=== PATIENT | male | born 1945 | race Caucasian/White ===

== ENCOUNTER 2016-10-22 00:10 | Emergency (ER) | payer MEDICAID ==
[~2016-10-22] VITALS: Ht 152.4 cm; Wt 65.8 kg
[~2016-10-22 00:10] MED LIST: ACET-2605; AMLO10TA2; ASPI-605; ATOR40TA; CALC-746; GLIM1TAB2 PO; LISI10TA5 PO; METF500T4; OMEG1CAP PO
--- NOTE | 2016-10-22 00:20 | NUR ---
LISANDRO LE EDEMA X2 MONTHS; WORSE THE LAST 2 WEEKS; TODAY CANT WALK. PT GOWNED, PLACED ON CORPORATE RISK ANALYST, SKIN WARM AND DRY, RR EVEN AND UNLABORED. AWAITING ORDERS FROM PROVIDER, WILL CONITNUE TO MONITOR
[2016-10-22 01:00] LABS: BASOPHILS % (AUTO) 0.8 % (0.0-2.0); EOSINOPHILS # (AUTO) 0.3 /CMM (0.0-0.7); EOSINOPHILS % (AUTO) 5.7 % (0.0-6.0); HEMATOCRIT 35 % (39-51); HEMOGLOBIN 11.2 g/dL (13.5-17.5); LYMPHOCYTES # (AUTO) 1.9 /CMM (0.8-4.8); LYMPHOCYTES % (AUTO) 38.8 % (20.0-44.0); MEAN CORPUSCULAR HEMOGLOBIN 25 PG (26.0-33.0); MEAN CORPUSCULAR HGB CONC 32 g/dl (31.0-36.0); MEAN CORPUSCULAR VOLUME 78 fL (80-96); MONOCYTES # (AUTO) 0.5 /CMM (0.1-1.30); MONOCYTES % (AUTO) 10.3 % (2.0-12.0); NEUTROPHILS # (AUTO) 2.2 /CMM (1.8-8.9); NEUTROPHILS % (AUTO) 44.4 % (43.0-81.0); PLATELET COUNT (AUTO) 222 /CMM (150-450); RDW COEFFICIENT OF VARIATION 14.9 (11.5-15.0); RED BLOOD CELL COUNT(AUTO) 4.48 MIL/uL (4.5-6.0)
[2016-10-22 01:12] LABS: CALCIUM, SERUM 8.4 mg/dL (8.5-10.1); POTASSIUM 4.1 mmol/L (3.5-5.1)
[2016-10-22 01:57] VITALS: BP 163/70
--- NOTE | 2016-10-22 01:58 | NUR ---
Patient discharged to home in stable condition. Written and verbal after care instructions given. Patient verbalizes understanding of instruction. PT ambulatory with a steady gait VITAL SIGNS WITHIN NORMAL LIMITS.
== END 2016-10-22 01:59 | disposition home or self-care (01) ==
LOC: ER 00:10
DX: M79.605 Pain in left leg (principal); M79.604 Pain in right leg; G89.29 Other chronic pain; G62.9 Polyneuropathy, unspecified; I10 Essential (primary) hypertension; E11.9 Type 2 diabetes mellitus without complications; Z86.73 Personal history of transient ischemic attack (TIA), and cerebral infarction without residual deficits; I25.10 Atherosclerotic heart disease of native coronary artery without angina pectoris; Z79.82 Long term (current) use of aspirin; Z79.84 Long term (current) use of oral hypoglycemic drugs; Z79.899 Other long term (current) drug therapy
CPT/HCPCS: 36415; 80048; 85025; 99284; A4606; Z7610

== ENCOUNTER 2017-01-04 09:58 | Inpatient (IN) | payer MEDICAID ==
[2017-01-04] VITALS (8 sets, daily range): BP systolic 121–174; BP diastolic 50–80
[~2017-01-04] VITALS: Ht 157.5 cm; Wt 73.0 kg
[~2017-01-04 09:58] MED LIST changes: -AMLO10TA2; +AMLO10TA2 PO; -ASPI-605; +ASPI-605 PO; -ATOR40TA; +ATOR40TA PO; -CALC-746; +CALC-746 PO; -METF500T4; +METF500T4 PO
--- NOTE | 2017-01-04 10:06 | NUR ---
ALVARO FROM HOME DT CHEST PAIN, SHARP, NON RADIAITNG SINCE LAST NIGHT. PATIENT WAS GIVEN ASA 162MG AND NITRO IN FIELD. PATIENT DENIES SOB,. SKIN IS WARM TO TOUCH AND NON DIOAPHORETIC. AFEBRILE. VSS. GOWNED PT AND PLACED ON TELE MONITOR
--- NOTE | 2017-01-04 10:11 | NUR ---
EKG DONE AT BS.
--- NOTE | 2017-01-04 10:17 | NUR ---
CHOPPER FEEDER AT FOR BLOOD DRAW.
[2017-01-04 10:22] LABS: BASOPHILS # (AUTO) 0.1 /CMM (0.0-0.2); BASOPHILS % (AUTO) 0.8 % (0.0-2.0); EOSINOPHILS # (AUTO) 0.1 /CMM (0.0-0.7); HEMATOCRIT 24 % (39-51); HEMOGLOBIN 7.6 g/dL (13.5-17.5); LYMPHOCYTES # (AUTO) 1.3 /CMM (0.8-4.8); MEAN CORPUSCULAR HEMOGLOBIN 25 PG (26.0-33.0); MEAN CORPUSCULAR HGB CONC 32 g/dl (31.0-36.0); MEAN CORPUSCULAR VOLUME 79 fL (80-96); MONOCYTES # (AUTO) 0.6 /CMM (0.1-1.30); MONOCYTES % (AUTO) 7.3 % (2.0-12.0); NEUTROPHILS # (AUTO) 5.5 /CMM (1.8-8.9); NEUTROPHILS % (AUTO) 73.9 % (43.0-81.0); PLATELET COUNT (AUTO) 527 /CMM (150-450); RDW COEFFICIENT OF VARIATION 14.9 (11.5-15.0); RED BLOOD CELL COUNT(AUTO) 3.05 MIL/uL (4.5-6.0); WHITE BLOOD COUNT (AUTO) 7.6 K/uL (4.3-11.0)
[2017-01-04 10:33] LABS: CALCIUM, SERUM 8.2 mg/dL (8.5-10.1); CARBON DIOXIDE 30 mmol/L (21-32); CHLORIDE 105 mmol/L (98-107); GLUCOSE 119 mg/dL (74-106); POTASSIUM 3.6 mmol/L (3.5-5.1); SODIUM SERUM 141 mmol/L (136-145); UREA NITROGEN, BLOOD 16 mg/dL (7-18)
[2017-01-04 10:36] LABS: INR 1.12 (0.87-1.13); PROTHROMBIN TIME 11.7 SECS (9.5-12.7)
[2017-01-04 10:42] LABS: TROPONIN I 0.176 ng/mL (0.00-0.056)
[2017-01-04] MEDS ORDERED: ATEN25TA PO (10:49)
[2017-01-04] MEDS ORDERED: AMLO10TA2 PO (10:49)
--- NOTE | 2017-01-04 11:07 | NUR ---
RENETTA CHERY AT BS.
--- NOTE | 2017-01-04 11:14 | NUR ---
REPORT GIVEN TO KRISTOFER OWENS FOR TELE ROOM 306-1.
--- NOTE | 2017-01-04 11:45 | NUR ---
RN OPENING NOTES RECEIVED PATIENT FROM ER VIA GURNEY TO ROOM 320-1. PATIENT ADMITTED FOR CHEST PAIN. PATIENT IS IN STABLE CONDITION. FAMILY AT BED SIDE. PATIENT A/OX3. PATIENT PRIMARY LANGUAGE IS LATVIAN. FAMILY ABLE TO INTERPRET. LAC 20G S/L. RESPIRATIONS EVEN AND UNLABORED AT THIS TIME. NO ACUTE DISTRESS. DENIES SOB. PATIENT IS FC. ON TELE MONITOR. SINUS RHYTHM WITH OCCASIONAL PVC'S. PATIENT HAD LEFT KNEE REPLACEMENT 10 DAYS AGO (12/25). FAMILY STATES THAT PATIENT HAS BEEN HAVING THE URGE TO URINATE FREQUENTLY AND BURNING ACCOMPANIES URINATION. PATIENT HAS NO COMPLAINT OF CHEST PAIN AT THIS TIME. WILL COMMUNICATE PATIENT NEEDS WITH SON. BED LOCKED IN THE LOWEST POSITION WITH CALL LIGHT WITHIN REACH. SIDE RAILS UP X2. WILL CONTINUE TO MONITOR AND ASSESS PATIENT.
[2017-01-04] MEDS ORDERED: Z GUARD REMEDY 2 OZ OINT TP PRN (13:00)
[2017-01-04] MEDS ORDERED: MORPHINE SULFATE INJ 2 MG/ML DISP.SYRIN IV PRN (13:00)
[2017-01-04] MEDS: ENOXAPARIN SODIUM 40 MG/0.4 ML DISP.SYRIN SQ SCH ×3 (13:00→13:51)
[2017-01-04] MEDS ORDERED: ONDANSETRON HCL/PF 4 MG/2 ML VIAL IVP PRN (13:00)
[2017-01-04] MEDS ORDERED: ACETAMINOPHEN 325 MG TABLET PO PRN (13:00)
[2017-01-04] MEDS: IV NS 0.9% 1,000 ML IV PRN (13:37)
--- NOTE | 2017-01-04 14:00 | NUR ---
RN NOTES PRIOR TO 1300 ADMINISTRATION OF LOVENOX. FAMILY STATED THAT THEY GAVE PATIENT LOVENOX AT APPROXIMATELY 0030. CALLED PHARMACY TO DISCUSS ISSUE AND PHARMACIST EMILE STATED IT IS OKAY TO HOLD PER FAMILY DOSE OF LOVENOX AT 0030. PATIENT RECEIVING NS AT 75 ML/HR LAC. WILL CONTINUE TO MONITOR.
[2017-01-04] MEDS ORDERED: LORATADINE 10 MG TABLET PO PRN (18:00)
--- NOTE | 2017-01-04 19:30 | NUR ---
TRACK SURFACING MACHINE OPERATOR NOTE RECEIVED PATIENT FROM DAY SHIFT, PATIENT IS ALERT AND ORIENTEDX3, DENIES RESPIRATORY DISTRESS OR PAIN AT THIS TIME, IV ON LEFT AC IS PATENT AND INTACT, NS IS RUNNING. HOME MEDS NEED TO BE RECONCILED, DR ROSS MADE AWARE. WILL HANG 1 UNIT OF PRBC WELL. TELE MONITOR ST WITH PVC 109. SRX2, BED IN LOW POSITION, CALL LIGHT WITHIN REACH, WILL CONTINUE TO MONITOR PATIENT.
--- NOTE | 2017-01-04 19:30 | NUR ---
RN CLOSING NOTES PATIENT AMBULATING WITH WALKER AND ASSISTANCE. PATIENT A/OX3. PATIENT PRIMARY LANGUAGE IS GREENLANDIC. FAMILY ABLE TO INTERPRET. LAC 20G S/L. RESPIRATIONS EVEN AND UNLABORED AT THIS TIME. NO ACUTE DISTRESS. DENIES SOB. SINUS RHYTHM WITH OCCASIONAL PVC'S. PATIENT HAS NO COMPLAINT OF CHEST PAIN AT THIS TIME. ALL MEDS GIVEN APPROPRIATE. PATIENT HAS ONE UNIT OF BLOOD READY. CONSENT SIGNED AND PLACED IN CHART. WILL ENDORSE TO NIGHT RN. BED LOCKED IN THE LOWEST POSITION WITH CALL LIGHT WITHIN REACH. SIDE RAILS UP X2. REPORT GIVEN TO TANK TERMINAL GAUGER RN FOR CONTINUATION OF CARE.
--- NOTE | 2017-01-04 20:40 | NUR ---
CLIPPER OPERATOR NOTE 1 UNIT OF PRBC STARTED, VS WNL 121/62, PULSE 90 TEMP 98.4F. WILL CONTINUE TO MONITOR FOR S/S OF TRANSFUSION REACTIONS.
[2017-01-04] MEDS ORDERED: ZOLPIDEM TARTRATE 5 MG TABLET PO PRN (22:00)
--- NOTE | 2017-01-04 23:15 | NUR ---
BARREL ASSEMBLER NOTE 1 UNIT OF PRBC TRANSFUSION COMPLETED WITHOUT REACTIONS, VS WNL, RECORDED UNDER TRANSFUSIONS.
[2017-01-05] VITALS (7 sets, daily range): BP systolic 121–158; BP diastolic 51–90
[2017-01-05 00:12] LABS: APPEARANCE,URINE CLEAR (CLEAR); BILIRUBIN,URINE NEGATIVE (NEGATIVE); BLOOD, URINE NEGATIVE Ery/uL (NEGATIVE); COLOR,URINE YELLOW (YELLOW); KETONES,URINE NEGATIVE (NEGATIVE); LEUKOCYTE ESTERASE ,URINE NEGATIVE (NEGATIVE); NITRITE, URINE NEGATIVE (NEGATIVE); PROTEIN,URINE TRACE mg/dl (NEGATIVE); UGLUCOSE 1+ mg/dL (NEGATIVE); UROBILINOGEN,URINE 0.2 EU/dL (0.2)
[2017-01-05 00:30] LABS: BACTERIA,URINE None seen /HPF (None Seen); RBC,URINE 0-2 /HPF (0-2); SQUAMOUS EPITHELIAL CELL,UR Rare /HPF (None Seen); WBC,URINE NONE SEEN /HPF (0-3)
[2017-01-05 00:31] LABS: MUCUS,URINE Rare /LPF (None Seen)
--- NOTE | 2017-01-05 01:45 | NUR ---
SHEET ROCK FINISHER NOTE PATIENT'S SON REQUESTED TO GIVE AMBIEN SINCE PT IS HAVING A HARD TIME SLEEPING. AMBIEN 5MG PO GIVEN, WILL MONITOR EFFECTIVENESS.
[2017-01-05 06:37] LABS: BASOPHILS % (AUTO) 0.5 % (0.0-2.0); EOSINOPHILS # (AUTO) 0.1 /CMM (0.0-0.7); EOSINOPHILS % (AUTO) 1.6 % (0.0-6.0); HEMATOCRIT 28 % (39-51); HEMOGLOBIN 9.3 g/dL (13.5-17.5); LYMPHOCYTES # (AUTO) 1.6 /CMM (0.8-4.8); MEAN CORPUSCULAR HEMOGLOBIN 26 PG (26.0-33.0); MEAN CORPUSCULAR HGB CONC 33 g/dl (31.0-36.0); MEAN CORPUSCULAR VOLUME 80 fL (80-96); MONOCYTES # (AUTO) 0.8 /CMM (0.1-1.30); MONOCYTES % (AUTO) 9.5 % (2.0-12.0); NEUTROPHILS # (AUTO) 5.9 /CMM (1.8-8.9); NEUTROPHILS % (AUTO) 69.4 % (43.0-81.0); PLATELET COUNT (AUTO) 491 /CMM (150-450); RDW COEFFICIENT OF VARIATION 15.5 (11.5-15.0); RED BLOOD CELL COUNT(AUTO) 3.52 MIL/uL (4.5-6.0); WHITE BLOOD COUNT (AUTO) 8.6 K/uL (4.3-11.0)
[2017-01-05 07:01] LABS: ALANINE AMINOTRANSFERASE 30 U/L (12-78); ALBUMIN 2.4 g/dL (3.4-5.0); ALKALINE PHOSPHATASE 55 U/L (46-116); ASPARTATE AMINOTRANSFERASE 27 U/L (15-37); BILIRUBIN,TOTAL 0.7 mg/dL (0.2-1.0); CALCIUM, SERUM 8.4 mg/dL (8.5-10.1); CARBON DIOXIDE 31 mmol/L (21-32); CHLORIDE 104 mmol/L (98-107); CREATININE 0.8 mg/dL (0.6-1.3); GLUCOSE 104 mg/dL (74-106); MAGNESIUM 1.5 mg/dL (1.8-2.4); PHOSPHORUS 3.5 mg/dL (2.5-4.9); POTASSIUM 3.6 mmol/L (3.5-5.1); SODIUM SERUM 141 mmol/L (136-145); UREA NITROGEN, BLOOD 16 mg/dL (7-18)
[2017-01-05 07:11] LABS: CHOLESTEROL 102 mg/dL (<200); HDL CHOLESTEROL 29 mg/dL (40-60); LDL 60 mg/dL (0-99); THYROID STIMULATING HORMONE 0.274 uIU/mL (0.358-3.74); TRIGLYCERIDES 56 mg/dL (30-150)
--- NOTE | 2017-01-05 07:11 | NUR ---
CLIENT INSIGHTS CONSULTANT OPENING NOTES PATIENT RECEIVED AWAKE IN BED IN NO ACUTE SIGNS OF DISTRESS. A/OX3, NO C/O PAIN OR DISCOMFORTS VOICED AT THIS TIME. FAMILY AT BEDSIDE. ON ROOM AIR, BREATHING EVEN AND UNLABORED. ON TELE-MONITORING WITH CURRENT READING OF SINUS RHYTHM WITH OCCASIONAL PVC'S AND HR ON 80'S, NO C/O CHEST PAIN AT THIS TIME. IV ACCESS ON LAC INTACT AND PATENT WITH IVF OF NS @ 75ML/HR INFUSING WELL. BED LOCKED AND IN LOWEST POSITION WITH CALL LIGHT WITHIN REACH OF PT. SIDE RAILS UP X2. WILL CONTINUE TO MAINTAIN ALL SAFETY MEASURES AND WILL CONTINUE TO MONITOR PT ACCORDINGLY.
--- NOTE | 2017-01-05 07:19 | NUR ---
ROUNDSMAN NOTE PATIENT IS RESTING IN BED COMFORTABLY, NO S/S OF RESPIRATORY DISTRESS OR PAIN AT THIS TIME. IV ON LEFT AC IS PATENT AND INTACT, NO ACUTE CHANGE OF CONDITION NOTED THROUGHOUT THE SHIFT. ENDORSE TO DAY SHIFT NURSE FOR JENNY.
[2017-01-05 07:53] LABS: IRON, SERUM 46 ug/dl (50-175); TOTAL IRON BINDING CAPACITY 193 ug/dl (250-450)
--- NOTE | 2017-01-05 11:42 | NUR ---
RN NOTES PATIENT SEEN AND EVALUATED BY DR ROSS. NOTED WITH LOW LEVEL OF MG 1.5, MD ORDER TO REPLACE WITH 1G/100ML D5W X 4. MD AWARE OF OTHER LAB RESULTS. WILL CONTINUE TO MONITOR.
[2017-01-05] MEDS ORDERED: Magnesium 1GM/D5W 100ML PREMIX 100 ML IV SCH (12:00)
[2017-01-05] MEDS: Magnesium 1GM/D5W 100ML PREMIX 100 ML IV SCH ×4 (12:18→15:53)
[2017-01-05] MEDS: ASPIRIN EC 81 MG TABLET.DR PO SCH (14:22)
[2017-01-05] MEDS: ATENOLOL 25 MG TABLET PO SCH (14:25)
--- NOTE | 2017-01-05 14:46 | NUR ---
RN NOTES SON ASKED FOR PT TO HAVE HIS BLOOD SUGAR CHECK BECAUSE NOBODY CHECK IT SINCE HE WAS ADMITTED. B/S 258MG/DL, NO SIGNS OF HYPERGLYCEMIA OBSERVED. MD MADE AWARE AND WILL START TO GIVE METFORMIN AT 1700 THIS AFTERNOON AND COVERAGE OF HUMULIN R WHEN B/S CHECK ACHS. WILL CONTINUE TO MONITOR.
[2017-01-05] MEDS: BLOOD SUGAR DIAGNOSTIC 1 EACH STRIP IN SCH ×3 (14:53→21:26)
[2017-01-05] MEDS ORDERED: DEXTROSE 50%-WATER 50 ML DISP.SYRIN IV PRN (15:00)
--- NOTE | 2017-01-05 15:28 | NUR ---
RN NOTES PT SEEN AND EVALUATED BY DR FLORIAN WITH ORDER TO DO NM MYOCARDIAL STRESS TEST TOMORROW, 01/06/2017 AND NPO POST MIDNIGHT. EXPLAINED PROCEDURE TO PT AND SON AND THEY VERBALIZED UNDERSTANDING. CONSENT SIGNED BY SON AND FILED ON CHART.
[2017-01-05] MEDS: METFORMIN 500 MG TABLET PO SCH (17:01)
[2017-01-05] MEDS: INSULIN REGULAR, HUMAN 100 UNIT/ML 3 ML VIAL SQ PRN ×2 (17:49→21:27)
[2017-01-05] MEDS: IV NS 0.9% 1,000 ML IV PRN (18:32)
--- NOTE | 2017-01-05 18:47 | NUR ---
LEAD PROJECT MANAGER CLOSING NOTES PATIENT AWAKE AND LYING AT MODERATE HIGH BACKREST IN BED WITH FAMILY AT BEDSIDE. A/O X3, SPEAKS IN TAMAZIGHT WITH SON SERVES THE CIGAR WRAPPER. ON TELE-MONITORING WITH CURRENT READING OF SINUS RHYTHM WITH PVC'S AND HR ON HIGH 60'S, NO C/O CHEST PAIN THROUGHOUT THE DAY. ON ROOM AIR, BREATHING EVEN AND UNLABORED. IV ACCESS ON LAC INTACT AND PATENT WITH IVF OF NS @ 75ML/HR INFUSING WELL. BED LOCKED AND IN LOWEST POSITION WITH SIDE RAILS UP X2. CALL LIGHT WITHIN REACH OF PT. ALL SAFETY MEASURES MAINTAINED. ALL NEEDS AND CARE ATTENDED WELL. WILL ENDORSED TO PRINCIPAL SOLUTIONS ARCHITECT NURSE FOR JENNY.
--- NOTE | 2017-01-05 19:35 | NUR ---
SCIENTIFIC DIRECTOR NOTE RECEIVED PATIENT FROM DAY SHIFT, PATIENT IS ALERT AND ORIENTED3, TURKISH SPEAKER, SON IS AT BEDSIDE A MARKER SHIPMENTS, AMBULATORY WITH SON'S ASSIST, NO S/S OF RESPIRATORY DISTRESS. PLANNING FOR [place]AN TOMORROW, NPO POST MIDNIGHT. TELE MONITOR SR WITH PVC 61. SRX2, BED IN LOW POSITION, CALL LIGHT WITHIN REACH, WILL CONTINUE TO MONITOR PATIENT.
--- NOTE | 2017-01-05 20:20 | NUR ---
ISOBUTYLENE OPERATOR CHIEF NOTE PATIENT'S SON WAS CONCERNED THAT IT HAS BEEN 3 HOURS SINCE HE URINATED AFTER DRINKING A LOT OF FLUID TODAY, AND WHEN HE URINATED 3 HOURS AGO, IT WAS ONLY DRIBBLES WITHOUT A FLOW. CHECKED BLADDER SCAN, >355ML OF URINE NOTED. WILL PAGE KOJO PAIGE.
--- NOTE | 2017-01-05 20:40 | NUR ---
ASBESTOS REMOVER NOTE PAGED ONCALL DONYA OMALLEY AND REPORTED ABOUT PATIENT'S CONDITION, SHE MADE AWARE AND STATED TO HOLD NS FLUID UNTIL MIDNIGHT AND OBSERVE FOR ANOTHER 3 HOURS AND IF HE DOES NOT STILL URINATE, THEN DO STRAIGHT CATH ONCE. INFORMED THE PATIENT'S FAMILY ABOUT IT.
[2017-01-05] MEDS: ENOXAPARIN SODIUM 40 MG/0.4 ML DISP.SYRIN SQ SCH (21:27)
[2017-01-05] MEDS ORDERED: ATORVASTATIN 40 MG TABLET PO SCH ×2 (22:00)
[2017-01-06] VITALS: BP 139/61
--- NOTE | 2017-01-06 00:30 | NUR ---
OUTBOUND SUPERVISOR NOTE PER PATIENT'S SON, HE HASN'T URINATED YET, CHECK WITH A BLADDER SCAN, AND IT SAID >665ML. PERFORMED IN AND OUT STRAIGHT CATH PER ORDER, 925ML URINE OUT PUT NOTED.
[2017-01-06 04:00] VITALS: BP 134/59
[2017-01-06] MEDS: BLOOD SUGAR DIAGNOSTIC 1 EACH STRIP IN SCH ×3 (05:37→17:24)
--- NOTE | 2017-01-06 06:52 | NUR ---
DRAG OUT WORKER NOTE PATIENT IS RESTING COMFORTABLY, NO S/S OF RESPIRATORY DISTRESS OR PAIN AT THIS TIME. TELE MONITOR SR 61. WILL ENDORSE TO DAY SHIFT FOR JENNY.
[2017-01-06 07:04] VITALS: BP 133/61
--- NOTE | 2017-01-06 07:19 | NUR ---
DEPARTMENT ASSISTANT OPENING NOTES RECEIVED PT AWAKE IN BED IN NO ACUTE SIGNS OF DISTRESS. FAMILY AT BEDSIDE. A/OX3, NO VERBALIZATION OF PAIN OR DISCOMFORTS AT THIS TIME. PT FOR NM MYOCARDIAL STRESS TEST TODAY. NPO MAINTAINED. ON ROOM AIR, BREATHING EVEN AND UNLABORED. ON TELE-MONITORING WITH CURRENT READING OF SINUS RHYTHM WITH HR OF 62, NO C/O CHEST PAIN AT THIS TIME. IV ACCESS ON LAC INTACT AND PATENT WITH IVF OF NS @ 75ML/HR INFUSING WELL. BED LOCKED AND IN LOWEST POSITION WITH CALL LIGHT WITHIN REACH OF PT. SIDE RAILS UP X2. WILL CONTINUE TO MAINTAIN ALL SAFETY MEASURES AND WILL CONTINUE TO MONITOR PT ACCORDINGLY.
[2017-01-06 07:33] LABS: CALCIUM, SERUM 7.6 mg/dL (8.5-10.1); CARBON DIOXIDE 30 mmol/L (21-32); CHLORIDE 106 mmol/L (98-107); CREATININE 0.9 mg/dL (0.6-1.3); GLUCOSE 131 mg/dL (74-106); POTASSIUM 3.9 mmol/L (3.5-5.1); SODIUM SERUM 142 mmol/L (136-145); UREA NITROGEN, BLOOD 20 mg/dL (7-18)
[2017-01-06 08:00] VITALS: BP 133/61
[2017-01-06] MEDS: ATENOLOL 25 MG TABLET PO SCH (08:55)
[2017-01-06] MEDS: METFORMIN 500 MG TABLET PO SCH ×2 (08:55→17:15)
[2017-01-06] MEDS: ASPIRIN EC 81 MG TABLET.DR PO SCH (08:55)
[2017-01-06] MEDS ORDERED: GLIMEPIRIDE 1 MG TABLET PO SCH (09:00)
[2017-01-06] MEDS ORDERED: AMLODIPINE BESYLATE 10 MG TABLET PO SCH ×2 (09:00)
[2017-01-06] MEDS ORDERED: ATENOLOL 25 MG TABLET PO SCH (09:00)
[2017-01-06] MEDS ORDERED: ASPIRIN EC 81 MG TABLET.DR PO SCH (09:00)
--- NOTE | 2017-01-06 10:42 | NUR ---
RN NOTES PATIENT WENT FOR NM MYOCARDIAL STRESS TEST VIA WHEELCHAIR ACCOMPANIED BY SON.
[2017-01-06] MEDS ORDERED: REGADENOSON 0.4 MG/5 ML DISP.SYRIN IVP ONE (11:00)
--- NOTE | 2017-01-06 11:43 | NUR ---
RN NOTES PATIENT'S SON VERBALIZED THAT WHEN PT IS VOIDING ITS ONLY DRIBBLES WITH BLOOD TINGED. BLADDER SCAN DONE WITH 525ML URINE RETENTION NOTED. MD MADE AWARE WITH ORDER TO INSERT TURCIOS CATHETER, COLLECT URINE FOR URINALYSIS AND GIVE FLOMAX 0.4MG DAILY. WILL CONTINUE TO MONITOR..
[2017-01-06 12:00] VITALS: BP_SYST 134; BP_SYST 136; BP_DIAS 62; BP_DIAS 70
[2017-01-06] MEDS: INSULIN REGULAR, HUMAN 100 UNIT/ML 3 ML VIAL SQ PRN ×2 (12:32→17:26)
--- NOTE | 2017-01-06 12:44 | NUR ---
RN NOTES PATIENT CAME BACK FROM [place] MYOCARDIAL STRESS TEST. TURCIOS CATHETER INSERTED PER MD ORDER WITH INITIAL URINE OUTPUT OF 500ML. URINE SPECIMEN COLLECTED AND FIRTS DOSE OF FLOMAX0.4MG GIVEN AND THEN DAILY. WILL CONTINUE TO MONITOR.
[2017-01-06] MEDS ORDERED: TAMSULOSIN 0.4 MG CAP.SR.24H PO SCH (13:00)
[2017-01-06 13:08] LABS: APPEARANCE,URINE CLEAR (CLEAR)
[2017-01-06 13:09] LABS: BILIRUBIN,URINE NEGATIVE (NEGATIVE); BLOOD, URINE 2 Ery/uL (NEGATIVE); COLOR,URINE YELLOW (YELLOW); KETONES,URINE NEGATIVE (NEGATIVE); NITRITE, URINE NEGATIVE (NEGATIVE); PROTEIN,URINE NEGATIVE (NEGATIVE); UGLUCOSE NEGATIVE (NEGATIVE); UROBILINOGEN,URINE 0.2 EU/dL (0.2)
[2017-01-06 13:10] LABS: LEUKOCYTE ESTERASE ,URINE TRACE (NEGATIVE)
[2017-01-06 13:16] LABS: BACTERIA,URINE Rare /HPF (None Seen); SQUAMOUS EPITHELIAL CELL,UR Rare /HPF (None Seen); WBC,URINE 0-2 /HPF (0-3)
[2017-01-06 16:00] VITALS: BP 112/47
[2017-01-06] MEDS ORDERED: PNEUMOCOCCAL 23-VAL P-SAC VAC 0.5 ML VIAL SQ ONE (16:30)
--- NOTE | 2017-01-06 18:35 | NUR ---
MS RN DISCHARGED NOTES PATIENT DISCHARGE HOME IN STABLE CONDITION. LEFT UNIT VIA WHEELCHAIR ACCOMPANIED BY GARMENT LINER TO THE LOBBY AND SON WILL TAKE HIM HOME. ALERT AND ORIENTED X3, NO C/O PAIN OR DISCOMFORTS DURING DISCHARGE. PNEUMONIA VACCINE GIVEN PER REQUEST OF SON. V/S CHECKED AND RECORDED. SKIN IS INTACT. PT WENT HOME WITH TURCIOS CONNECTED TO LEG BAG DRAINAGE PER DR HENDERSON, NO HEMATURIA NOTED ON DISCHARGE. BELONGINGS CHECKED, COUNTED AND SIGNED BY SON. HEALTH TEACHINGS GIVEN TO SON AND PT AND THEY VERBALIZED UNDERSTANDING. MD AND CHARGE NURSE AWARE OF DISCHARGE.
== END 2017-01-06 18:50 | disposition home health service (06) | DRG 190 ==
LOC: ER 09:59 → TELE 11:22
PROVIDERS: ADMIT Nurse Practitioner Acute Care; ATTEND Internal Medicine
PROC: 30233N1 Transfusion of Nonautologous Red Blood Cells into Peripheral Vein, Percutaneous Approach (ICD-10-PCS; principal; 2017-01-04)
DX: I21.4 Non-ST elevation (NSTEMI) myocardial infarction (principal); I69.954 Hemiplegia and hemiparesis following unspecified cerebrovascular disease affecting left non-dominant side; I11.9 Hypertensive heart disease without heart failure; I08.3 Combined rheumatic disorders of mitral, aortic and tricuspid valves; E11.9 Type 2 diabetes mellitus without complications; D63.8 Anemia in other chronic diseases classified elsewhere; E78.5 Hyperlipidemia, unspecified; D75.89 Other specified diseases of blood and blood-forming organs; I69.920 Aphasia following unspecified cerebrovascular disease; H26.9 Unspecified cataract; I25.10 Atherosclerotic heart disease of native coronary artery without angina pectoris; Z79.82 Long term (current) use of aspirin; Z79.899 Other long term (current) drug therapy; Z79.84 Long term (current) use of oral hypoglycemic drugs; Z86.718 Personal history of other venous thrombosis and embolism; Z96.652 Presence of left artificial knee joint; R33.9 Retention of urine, unspecified
CPT/HCPCS: 36415; 71010-TC; 80048-TC; 80053-TC; 80061-TC; 81000-TC; 82962-TC; 83540-TC; 83735-TC; 84100-TC; 84443-TC; 84484-TC; 85025-TC; 85730-TC; 86850-TC; 86921-TC; 87040-TC; 87081-TC; 87086-TC; 93307-TC; 93971-TC; A4606; A6402; A9502; J1650; J1815; J2270; J2785; J3475; J7030; J7060; P9016-BL; Z7610

== ENCOUNTER 2017-04-22 22:06 | Emergency (ER) | payer MEDICAID ==
[~2017-04-22] VITALS: Ht 157.5 cm; Wt 68.0 kg
[~2017-04-22 22:06] MED LIST changes: -ACET-2605; +ATEN25TA PO; -LISI10TA5 PO; -OMEG1CAP PO
--- NOTE | 2017-04-22 22:15 | NUR ---
PT BIB HIS SON WITH A C/O WEAKNESS. 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 PT AMBULATES WITH ASSISTANCE. PT HAS BLE EDEMA. PER THE SON, PT HAS HAD INTERMITTENT ORBITAL EDEMA.
--- NOTE | 2017-04-22 22:50 | NUR ---
CALLED DMITRY AVILA
[2017-04-22 22:59] LABS: BASOPHILS % (AUTO) 1.1 % (0.0-2.0); EOSINOPHILS # (AUTO) 0.1 /CMM (0.0-0.7); HEMATOCRIT 32 % (39-51); HEMOGLOBIN 10.1 g/dL (13.5-17.5); LYMPHOCYTES # (AUTO) 1.5 /CMM (0.8-4.8); LYMPHOCYTES % (AUTO) 36.7 % (20.0-44.0); MEAN CORPUSCULAR HEMOGLOBIN 24 PG (26.0-33.0); MEAN CORPUSCULAR HGB CONC 32 g/dl (31.0-36.0); MEAN CORPUSCULAR VOLUME 75 fL (80-96); MONOCYTES # (AUTO) 0.5 /CMM (0.1-1.30); NEUTROPHILS % (AUTO) 47.2 % (43.0-81.0); PLATELET COUNT (AUTO) 263 /CMM (150-450); RDW COEFFICIENT OF VARIATION 16.3 (11.5-15.0); RED BLOOD CELL COUNT(AUTO) 4.19 MIL/uL (4.5-6.0); WHITE BLOOD COUNT (AUTO) 4.2 K/uL (4.3-11.0)
[2017-04-22 23:10] LABS: INR 1.2 (0.87-1.13); PROTHROMBIN TIME 12.5 SECS (9.5-12.7)
[2017-04-22 23:12] LABS: ALANINE AMINOTRANSFERASE 22 U/L (12-78); ALBUMIN 3.5 g/dL (3.4-5.0); ALKALINE PHOSPHATASE 55 U/L (46-116); ASPARTATE AMINOTRANSFERASE 18 U/L (15-37); BILIRUBIN,DIRECT 0.1 mg/dL (0.0-0.2); BILIRUBIN,TOTAL 0.4 mg/dL (0.2-1.0); CALCIUM, SERUM 9.3 mg/dL (8.5-10.1); CARBON DIOXIDE 29 mmol/L (21-32); CHLORIDE 104 mmol/L (98-107); CREATININE 1.1 mg/dL (0.6-1.3); GLUCOSE 82 mg/dL (74-106); POTASSIUM 4.1 mmol/L (3.5-5.1); SODIUM SERUM 136 mmol/L (136-145); TOTAL PROTEIN, SERUM 7.9 g/dL (6.4-8.2)
[2017-04-22 23:14] LABS: TROPONIN I 0.021 ng/mL (0.00-0.056)
[2017-04-22 23:27] LABS: UREA NITROGEN, BLOOD 20 mg/dL (7-18)
--- NOTE | 2017-04-22 23:30 | NUR ---
US IS AT THE BEDSIDE.
--- NOTE | 2017-04-22 23:32 | NUR ---
PT TO GO TO TELE ROOM #081-2
[2017-04-22 23:35] LABS: APPEARANCE,URINE CLEAR (CLEAR); BILIRUBIN,URINE NEGATIVE (NEGATIVE); BLOOD, URINE NEGATIVE Ery/uL (NEGATIVE); COLOR,URINE YELLOW (YELLOW); KETONES,URINE NEGATIVE (NEGATIVE); LEUKOCYTE ESTERASE ,URINE NEGATIVE (NEGATIVE); NITRITE, URINE NEGATIVE (NEGATIVE); PROTEIN,URINE NEGATIVE (NEGATIVE); UGLUCOSE NEGATIVE (NEGATIVE); UROBILINOGEN,URINE 0.2 EU/dL (0.2)
[2017-04-23] MEDS ORDERED: DOCU-106 PO (00:04)
[2017-04-23] MEDS ORDERED: FURO-145 PO (00:04)
[2017-04-23] MEDS ORDERED: TAMS0.4C34 PO (00:04)
[2017-04-23] MEDS ORDERED: CARV3.122 PO (00:04)
[2017-04-23] MEDS ORDERED: NAPR500T6 PO (00:04)
[2017-04-23] MEDS ORDERED: TRAM50TA2 PO (00:04)
--- NOTE | 2017-04-23 00:23 | NUR ---
PT'S BLOOD SUGAR IS 71. DR. GILBERT NOTIFIED. PT REC'D A TUNA SANDWICH AND WATER. PT IS TOLERATING PO WELL.
--- NOTE | 2017-04-23 00:58 | NUR ---
IV removed. Catheter intact and site benign. Pressure and 4x4 applied to site. No bleeding noted.Patient discharged to home in stable condition. Written and verbal after care instructions given. Patient's son verbalizes understanding of instruction. PT AMBULATED OUT WITH MINIMAL ASSISTANCE. PT REC'D A COPY OF ALL LABS AND IMAGING FINDINGS. BLOOD SUGAR WAS 92. DR. REYNOLDS NOTIFIED.
[2017-04-23 01:00] VITALS: BP 138/72
== END 2017-04-23 01:01 | disposition home or self-care (01) ==
LOC: ER 22:09
DX: R53.1 Weakness (principal); R51 Headache; R42 Dizziness and giddiness; E11.649 Type 2 diabetes mellitus with hypoglycemia without coma; I10 Essential (primary) hypertension; I25.10 Atherosclerotic heart disease of native coronary artery without angina pectoris; Z86.73 Personal history of transient ischemic attack (TIA), and cerebral infarction without residual deficits; Z79.82 Long term (current) use of aspirin; Z79.84 Long term (current) use of oral hypoglycemic drugs
CPT/HCPCS: 36415 ×2; 70450; 71010; 80048; 80076; 81001; 82962 ×3; 83880; 84484; 85025; 85730; 93005; 93970; 99285; A4606; Z7610 ×2; 81000-TC; A4649

== ENCOUNTER 2017-07-27 03:06 | Inpatient (IN) | payer MEDICAID ==
[~2017-07-27] VITALS: Ht 170.2 cm; Wt 70.3 kg
[~2017-07-27 03:06] MED LIST changes: -CALC-746 PO; +CALC-811 PO; +CARV3.122 PO; +DOCU-106 PO; +FURO-145 PO; +NAPR500T6 PO; +TAMS0.4C34 PO; +TRAM50TA2 PO
--- NOTE | 2017-07-27 03:15 | NUR ---
PT TO ER BED 1. PT BIBRA BLOODSUGAR LESS THAN 20 CUSTOMER RESOLUTION SPECIALIST,AMP D50 GIVEN CUSTOMER RESOLUTION SPECIALIST. VSS/RESP EVEN UNLABORED/NAD NOTED/SKIN WARM AND DRY. MD AT BEDSIDE FOR EVAL.
--- NOTE | 2017-07-27 03:20 | NUR ---
20G IV TO L AC X 1 ATTEMPT USING ASEPTIC TECH, BLOOD HANDED OVER TO LAB AT THE BEDSIDE. IV FLUSHES EASILY WITH NS, NO S/S INFILTRATION.
[2017-07-27 03:30] LABS: BASOPHILS # (AUTO) 0.1 /CMM (0.0-0.2); BASOPHILS % (AUTO) 1.2 % (0.0-2.0); EOSINOPHILS # (AUTO) 0.1 /CMM (0.0-0.7); EOSINOPHILS % (AUTO) 1.4 % (0.0-6.0); HEMATOCRIT 33 % (39-51); HEMOGLOBIN 10.7 g/dL (13.5-17.5); LYMPHOCYTES # (AUTO) 1.6 /CMM (0.8-4.8); MEAN CORPUSCULAR HEMOGLOBIN 25 PG (26.0-33.0); MEAN CORPUSCULAR HGB CONC 33 g/dl (31.0-36.0); MEAN CORPUSCULAR VOLUME 77 fL (80-96); MONOCYTES # (AUTO) 0.5 /CMM (0.1-1.30); MONOCYTES % (AUTO) 9.5 % (2.0-12.0); NEUTROPHILS % (AUTO) 56.9 % (43.0-81.0); PLATELET COUNT (AUTO) 219 /CMM (150-450); RDW COEFFICIENT OF VARIATION 16.9 (11.5-15.0); RED BLOOD CELL COUNT(AUTO) 4.26 MIL/uL (4.5-6.0); WHITE BLOOD COUNT (AUTO) 5.2 K/uL (4.3-11.0)
--- NOTE | 2017-07-27 03:35 | NUR ---
IN AND OUT CATH USING ELECTROENCEPHALOGRAM TECHNOLOGIST PER HERBIE SAUL. URINE SPECIMEN OBTAINED AND SENT TO THE LAB.
[2017-07-27] MEDS ORDERED: LIDOCAINE 2% JEL UROJET 10 ML MM ONE ×2 (03:41→04:00)
[2017-07-27 03:42] LABS: CALCIUM, SERUM 8.6 mg/dL (8.5-10.1); CARBON DIOXIDE 26 mmol/L (21-32); CHLORIDE 103 mmol/L (98-107); CREATININE 1.1 mg/dL (0.6-1.3); GLUCOSE 189 mg/dL (74-106); POTASSIUM 4.1 mmol/L (3.5-5.1); SODIUM SERUM 139 mmol/L (136-145); UREA NITROGEN, BLOOD 19 mg/dL (7-18)
--- NOTE | 2017-07-27 03:48 | NUR ---
XRAY AT BEDSIDE.
[2017-07-27 03:50] LABS: ALANINE AMINOTRANSFERASE 20 U/L (12-78); ALBUMIN 3.2 g/dL (3.4-5.0); ALKALINE PHOSPHATASE 65 U/L (46-116); ASPARTATE AMINOTRANSFERASE 30 U/L (15-37); BILIRUBIN,DIRECT 0.1 mg/dL (0.0-0.2); BILIRUBIN,TOTAL 0.3 mg/dL (0.2-1.0); TOTAL PROTEIN, SERUM 7.8 g/dL (6.4-8.2)
[2017-07-27 04:10] LABS: APPEARANCE,URINE CLEAR (CLEAR); BILIRUBIN,URINE NEGATIVE (NEGATIVE); BLOOD, URINE NEGATIVE Ery/uL (NEGATIVE); COLOR,URINE YELLOW (YELLOW); KETONES,URINE NEGATIVE (NEGATIVE); LEUKOCYTE ESTERASE ,URINE NEGATIVE (NEGATIVE); NITRITE, URINE NEGATIVE (NEGATIVE); PH,URINE 7.5 (5.0-8.0); PROTEIN,URINE TRACE mg/dl (NEGATIVE); UGLUCOSE NEGATIVE (NEGATIVE); UROBILINOGEN,URINE 0.2 EU/dL (0.2)
[2017-07-27 04:18] LABS: BACTERIA,URINE Few /HPF (None Seen); RBC,URINE 0-2 /HPF (0-2); SQUAMOUS EPITHELIAL CELL,UR Few /HPF (None Seen); WBC,URINE 0-2 /HPF (0-3)
[2017-07-27] MEDS ORDERED: AMOX500C2 PO (04:20)
[2017-07-27] MEDS ORDERED: OMEP40CA37 PO (04:20)
[2017-07-27] MEDS ORDERED: MAGN400T6 PO (04:20)
[2017-07-27] MEDS ORDERED: CLAR500T PO (04:20)
[2017-07-27] MEDS ORDERED: FINA5TAB3 PO (04:20)
--- NOTE | 2017-07-27 05:17 | NUR ---
PT GIVEN A SANDWICH AND JUICE PER MD ORDERS, FAMILY AT THE BEDSIDE.
[2017-07-27] MEDS ORDERED: ONDANSETRON HCL/PF 4 MG/2 ML VIAL ONE (05:19)
[2017-07-27] MEDS ORDERED: ONDANSETRON HCL/PF 4 MG/2 ML VIAL IV ONE (06:00)
[2017-07-27] MEDS ORDERED: DEXTROSE 50%-WATER 50 ML DISP.SYRIN ONE (06:25)
--- NOTE | 2017-07-27 06:25 | NUR ---
MEDICATED PER MD ORDERS.
[2017-07-27] MEDS ORDERED: DEXTROSE 50%-WATER 50 ML DISP.SYRIN IVP ONE (06:30)
--- NOTE | 2017-07-27 07:07 | NUR ---
ENDORSED TO ROMAN OGLESBY FOR JENNY.
--- NOTE | 2017-07-27 10:30 | NUR ---
TELE/RN OPENING NOTE PATIENT WAS BROUGHT TO ER FROM HOME FOR LOW BLOOD SUGAR. PATIENT IS ADMITTED TO TELE UNIT FOR DX OF HYPOGLYCEMIA. PATIENT ALERT AND ORIENTED X3, FORGETFUL AND SPEAKS CZECH. SON AND BY THE BEDSIDE AND TRANSLATING. PATIENT DENIES SOB. RESPIRATION REGULAR AND UNLABORED. DENIES PAIN AT THIS TIME. PATIENT IN NO APPARENT DISTRESS. NO S/S HYPO/HYPERGLYCEMIA NOTED. LAC G 18 PATENT. BED LOW AND LOCKED. SIDE RAILS UP X3. CALL LIGHT WITHIN REACH. ENCOURAGED TO PRESS THE CALL LIGHT FOR ASSISTANCE. WILL CONTINUE MONITOR.
[2017-07-27 11:19] VITALS: BP 155/69
[2017-07-27] MEDS ORDERED: Potassium Chloride 20 MEQ in IV D5 / 0.2% NACL 1,000 ML IV PRN (11:30)
[2017-07-27] MEDS ORDERED: ONDANSETRON HCL/PF 4 MG/2 ML VIAL IV PRN (11:30)
[2017-07-27 12:00] VITALS: BP 126/76
--- NOTE | 2017-07-27 12:30 | NUR ---
MS/RN NOTE STILL WAITING FOR MORE ORDERS FROM DR HENDERSON. WILL CONTINUE TO FOLLOW UP.
--- NOTE | 2017-07-27 14:20 | NUR ---
MS/RN NOTE WAITING FOR DR HENDERSON CALL TO OBTAIN FURTHER ORDER. FOLLOW UP CALL WAS MADE.
[2017-07-27 16:00] VITALS: BP 130/63
--- NOTE | 2017-07-27 18:45 | NUR ---
TELE/RN CLOSING NOTE PATIENT ALERT AND ORIENTED X3. RESPIRATION REGULAR AND UNLABORED. DENIES SOB, PAIN. DISCHARGE EDUCATION PROVIDED, THE PATIENT AND THE CAREGIVER VERBALIZED UNDERSTANDING. THE PATIENT WITH NO S/S HYPO/HYPERGLYCEMIA. IN STABLE CONDITION. LEFT THE FACILITY WITH SON AND . LEFT IN STABLE CONDITION.
== END 2017-07-27 18:53 | disposition home or self-care (01) | DRG 420 ==
LOC: ER 03:09 → TELE 10:12
PROVIDERS: ADMIT Internal Medicine; ATTEND Internal Medicine
DX: E11.649 Type 2 diabetes mellitus with hypoglycemia without coma (principal); F03.90 Unspecified dementia, unspecified severity, without behavioral disturbance, psychotic disturbance, mood disturbance, and anxiety; E78.5 Hyperlipidemia, unspecified; I10 Essential (primary) hypertension; I25.10 Atherosclerotic heart disease of native coronary artery without angina pectoris; I25.2 Old myocardial infarction; Z79.84 Long term (current) use of oral hypoglycemic drugs; Z86.73 Personal history of transient ischemic attack (TIA), and cerebral infarction without residual deficits; D50.9 Iron deficiency anemia, unspecified; Z96.659 Presence of unspecified artificial knee joint
CPT/HCPCS: 36415; 71045-TC; 80048-TC; 80076-TC; 81000-TC; 82962-TC; 85025-TC; 87081-TC; A4606; J2405; J3480; J3490; Z7610

== ENCOUNTER 2018-11-17 01:44 | Emergency (ER) | payer MEDICAID ==
[~2018-11-17] VITALS: Ht 162.6 cm; Wt 54.4 kg
[~2018-11-17 01:44] MED LIST changes: -AMLO10TA2 PO; +AMLO10TA7 PO; +AMOX500C2 PO; -ATEN25TA PO; +CALC-17 PO; -CALC-811 PO; +CLAR500T PO; +FINA5TAB3 PO; -GLIM1TAB2 PO; +MAGN400T6 PO; -METF500T4 PO; +OMEP40CA37 PO
--- NOTE | 2018-11-17 01:50 | NUR ---
BIBA FOR C/O SOB. A, OX4. CURRENTLY RECEIVING BREATHING TX ADMINISTERED BY RESCUER. NO C/O PAIN OR DISCKOMFORT . PLACED ON A MONITOR , VSS.
[2018-11-17] MEDS ORDERED: methylPREDNISolone SOD SUCC 125 MG/2ML VIAL IV ONE (02:00)
[2018-11-17] MEDS ORDERED: IPRATROPIUM NEB FS 0.5 MG/2.5 ML AMPUL.NEB NEB ONE (02:00)
[2018-11-17] MEDS ORDERED: ALBUTEROL FS 2.5 MG/3 ML VIAL.NEB NEB ONE (02:00)
--- NOTE | 2018-11-17 02:00 | NUR ---
RAC 18G STARTED AND BLOOD WAS DRAWN AND SENT TO THE LAB
[2018-11-17] MEDS ORDERED: IPRATROPIUM NEB FS 0.5 MG/2.5 ML AMPUL.NEB ONE (02:01)
[2018-11-17] MEDS ORDERED: ALBUTEROL FS 2.5 MG/3 ML VIAL.NEB ONE (02:01)
[2018-11-17] MEDS ORDERED: methylPREDNISolone SOD SUCC 125 MG/2ML VIAL ONE (02:07)
[2018-11-17 02:15] LABS: BASOPHILS # (AUTO) 0.1 /CMM (0.0-0.2); BASOPHILS % (AUTO) 1.9 % (0.0-2.0); EOSINOPHILS % (AUTO) 9.8 % (0.0-6.0); HEMATOCRIT 38 % (39-51); LYMPHOCYTES # (AUTO) 2.1 /CMM (0.8-4.8); LYMPHOCYTES % (AUTO) 38.7 % (20.0-44.0); MEAN CORPUSCULAR HGB CONC 32 g/dl (31.0-36.0); MEAN CORPUSCULAR VOLUME 79 fL (80-96); MONOCYTES # (AUTO) 0.4 /CMM (0.1-1.30); MONOCYTES % (AUTO) 8.1 % (2.0-12.0); NEUTROPHILS # (AUTO) 2.3 /CMM (1.8-8.9); NEUTROPHILS % (AUTO) 41.5 % (43.0-81.0); PLATELET COUNT (AUTO) 234 /CMM (150-450); RED BLOOD CELL COUNT(AUTO) 4.74 MIL/uL (4.5-6.0); WHITE BLOOD COUNT (AUTO) 5.4 K/uL (4.3-11.0)
--- NOTE | 2018-11-17 02:19 | NUR ---
LAB SPECIALIST AT THE BED SIDE
[2018-11-17 02:22] LABS: CALCIUM, SERUM 9.5 mg/dL (8.5-10.1); CARBON DIOXIDE 33 mmol/L (21-32); CHLORIDE 102 mmol/L (98-107); CREATININE 1.1 mg/dL (0.6-1.3); GLUCOSE 154 mg/dL (74-106); POTASSIUM 4.6 mmol/L (3.5-5.1); SODIUM SERUM 142 mmol/L (136-145); UREA NITROGEN, BLOOD 31 mg/dL (7-18)
[2018-11-17 02:35] LABS: ALANINE AMINOTRANSFERASE 15 U/L (12-78); ALBUMIN 4.1 g/dL (3.4-5.0); ALKALINE PHOSPHATASE 53 U/L (46-116); ASPARTATE AMINOTRANSFERASE 13 U/L (15-37); B-TYPE NATRIURETIC PEPTIDE 166 PG/ML (0-125); BILIRUBIN,DIRECT 0.1 mg/dL (0.0-0.2); BILIRUBIN,TOTAL 0.5 mg/dL (0.2-1.0); TOTAL PROTEIN, SERUM 7.9 g/dL (6.4-8.2)
--- NOTE | 2018-11-17 03:00 | NUR ---
Patient is resting comfortably in bed with eyes closed. Easily aroused. VSS. son at the bed side
--- NOTE | 2018-11-17 03:35 | NUR ---
Patient discharged to home in stable condition. Written and verbal after care instructions given. Patient/ family verbalized understanding of instruction.
[2018-11-17 03:55] VITALS: BP 116/54
== END 2018-11-17 03:57 | disposition home or self-care (01) ==
LOC: ER 01:46
DX: J98.01 Acute bronchospasm (principal); R53.1 Weakness; I25.10 Atherosclerotic heart disease of native coronary artery without angina pectoris; I21.9 Acute myocardial infarction, unspecified; I10 Essential (primary) hypertension; E11.9 Type 2 diabetes mellitus without complications; Z95.5 Presence of coronary angioplasty implant and graft; Z79.82 Long term (current) use of aspirin
CPT/HCPCS: 36415; 71045; 80048; 80076; 83605; 83880; 84484; 85025; 85730; 87040 ×2; 93005; 94640; 96374; 99284; J2930

== ENCOUNTER 2019-05-26 21:55 | Emergency (ER) | payer MEDICAID ==
[~2019-05-26] VITALS: Ht 157.5 cm; Wt 68.0 kg
[~2019-05-26 21:55] MED LIST changes: -MAGN400T6 PO; +MAGN400T8 PO; +OMEP40CA13 PO; -OMEP40CA37 PO
--- NOTE | 2019-05-26 21:55 | NUR ---
BIB EMS C/O MID R SIDED BACK PAIN S/P GLF, SOB WITH WHEEZING X1 HR GLOVE SEWER. HHN TX GIVEN BY EMS, pt awake, alert, pt on monitor, md at bedside for eval
[2019-05-26] MEDS ORDERED: FUROSEMIDE 40 MG/4 ML VIAL ONE (22:18)
[2019-05-26 22:22] LABS: BASOPHILS % (AUTO) 0.5 % (0.0-2.0); EOSINOPHILS % (AUTO) 1.2 % (0.0-6.0); HEMATOCRIT 38 % (39-51); HEMOGLOBIN 12.1 g/dL (13.5-17.5); LYMPHOCYTES # (AUTO) 1.3 /CMM (0.8-4.8); LYMPHOCYTES % (AUTO) 18.9 % (20.0-44.0); MEAN CORPUSCULAR HGB CONC 32 g/dl (31.0-36.0); MEAN CORPUSCULAR VOLUME 79 fL (80-96); MONOCYTES # (AUTO) 0.6 /CMM (0.1-1.30); NEUTROPHILS % (AUTO) 71.4 % (43.0-81.0); PLATELET COUNT (AUTO) 234 /CMM (150-450); RED BLOOD CELL COUNT(AUTO) 4.83 MIL/uL (4.5-6.0); WHITE BLOOD COUNT (AUTO) 7.1 K/uL (4.3-11.0)
[2019-05-26 22:30] LABS: CALCIUM, SERUM 9.6 mg/dL (8.5-10.1); CARBON DIOXIDE 32 mmol/L (21-32); CHLORIDE 101 mmol/L (98-107); CREATININE 1.1 mg/dL (0.6-1.3); GLUCOSE 233 mg/dL (74-106); POTASSIUM 4.4 mmol/L (3.5-5.1); SODIUM SERUM 140 mmol/L (136-145); UREA NITROGEN, BLOOD 27 mg/dL (7-18)
[2019-05-26] MEDS ORDERED: FUROSEMIDE 40 MG/4 ML VIAL IV ONE (22:30)
--- NOTE | 2019-05-26 22:41 | NUR ---
PT TRANSPORTED TO RADIOLOGY FOR CT.
[2019-05-26 22:47] LABS: ALANINE AMINOTRANSFERASE 17 U/L (12-78); ALBUMIN 4.1 g/dL (3.4-5.0); ALKALINE PHOSPHATASE 68 U/L (46-116); ASPARTATE AMINOTRANSFERASE 18 U/L (15-37); B-TYPE NATRIURETIC PEPTIDE 301 PG/ML (0-125); BILIRUBIN,DIRECT 0.1 mg/dL (0.0-0.2); BILIRUBIN,TOTAL 0.4 mg/dL (0.2-1.0); TOTAL PROTEIN, SERUM 8.1 g/dL (6.4-8.2)
--- NOTE | 2019-05-26 23:52 | NUR ---
FARIDEH DAVIS ON THE PHONE FOR CLINICALS
--- NOTE | 2019-05-26 23:53 | NUR ---
denice velazquez, dr cortez on the phone with er physician
--- NOTE | 2019-05-27 00:50 | NUR ---
PT ACCEPTED TO [facility] BY FREDY DIAZ. TELE 220-B. # FOR REPORT [phone]. [facility] ETA [phone]
--- NOTE | 2019-05-27 01:06 | NUR ---
REPORT GIVEN TO ERIBERTO FROM [facility].
--- NOTE | 2019-05-27 01:33 | NUR ---
PT TRANSFERRED TO [facility] VIA [facility] WT FAMILY AT BEDSIDE AND IN STABLE CONDITION. MEDICAL RECORDS ENDORSED TO EMT AND ALL BELONGINGS SENT WT FAMILY.
[2019-05-27 01:35] VITALS: BP 131/55
== END 2019-05-27 01:33 | disposition short-term general hospital (02) ==
LOC: ER 21:57
DX: M48.42XA Fatigue fracture of vertebra, cervical region, initial encounter for fracture (principal); R55 Syncope and collapse; J93.9 Pneumothorax, unspecified; I10 Essential (primary) hypertension; I25.10 Atherosclerotic heart disease of native coronary artery without angina pectoris; E11.9 Type 2 diabetes mellitus without complications; Z86.73 Personal history of transient ischemic attack (TIA), and cerebral infarction without residual deficits; Z79.899 Other long term (current) drug therapy; Z79.82 Long term (current) use of aspirin; W18.39XA Other fall on same level, initial encounter; Y93.89 Activity, other specified; Y92.89 Other specified places as the place of occurrence of the external cause; Y99.8 Other external cause status
CPT/HCPCS: 36415; 70450; 71045; 72074; 72125; 80048; 80076; 83880; 84484; 85025; 87081; 93005 ×2; 96374; 99285; J1940

== ENCOUNTER 2019-07-01 09:12 | Emergency (ER) | payer MEDICAID ==
[~2019-07-01] VITALS: Ht 182.9 cm; Wt 74.8 kg
--- NOTE | 2019-07-01 09:28 | NUR ---
dr no at bedside for eval.
[2019-07-01 09:54] LABS: BASOPHILS % (AUTO) 0.8 % (0.0-2.0); EOSINOPHILS % (AUTO) 4.3 % (0.0-6.0); HEMATOCRIT 32 % (39-51); HEMOGLOBIN 10.1 g/dL (13.5-17.5); LYMPHOCYTES # (AUTO) 1.4 /CMM (0.8-4.8); LYMPHOCYTES % (AUTO) 32.2 % (20.0-44.0); MEAN CORPUSCULAR HGB CONC 32 g/dl (31.0-36.0); MEAN CORPUSCULAR VOLUME 78 fL (80-96); MONOCYTES # (AUTO) 0.4 /CMM (0.1-1.30); NEUTROPHILS # (AUTO) 2.3 /CMM (1.8-8.9); NEUTROPHILS % (AUTO) 52.7 % (43.0-81.0); PLATELET COUNT (AUTO) 204 /CMM (150-450); RED BLOOD CELL COUNT(AUTO) 4.04 MIL/uL (4.5-6.0); WHITE BLOOD COUNT (AUTO) 4.3 K/uL (4.3-11.0)
--- NOTE | 2019-07-01 10:00 | NUR ---
CALLED NURSING SUP FOR TELE BED.
--- NOTE | 2019-07-01 10:02 | NUR ---
pt to radiology for head ct scan via [facility].
--- NOTE | 2019-07-01 10:10 | NUR ---
POINT OF CONTACT WITH [facility] 1010
[2019-07-01 10:14] LABS: B-TYPE NATRIURETIC PEPTIDE 342 PG/ML (0-125); LIPASE 125 U/L (73-393)
--- NOTE | 2019-07-01 10:22 | NUR ---
RYAN GOMEZ FROM [facility] CALLED TO GET CLINICALS PHONE NUMBER [phone]. FAX NUMBER [phone].
[2019-07-01 10:27] LABS: SERUM AMMONIA < 10 umol/L (11-32)
[2019-07-01] MEDS ORDERED: TIZA4TAB5 PO (10:31)
[2019-07-01] MEDS ORDERED: METF-440 PO (10:31)
[2019-07-01] MEDS ORDERED: CARB1TAB21 PO (10:31)
[2019-07-01 10:42] LABS: CALCIUM, SERUM 8.9 mg/dL (8.5-10.1); CARBON DIOXIDE 28 mmol/L (21-32); CHLORIDE 102 mmol/L (98-107); CREATININE 1.1 mg/dL (0.6-1.3); GLUCOSE 221 mg/dL (74-106); POTASSIUM 4.5 mmol/L (3.5-5.1); SODIUM SERUM 137 mmol/L (136-145); UREA NITROGEN, BLOOD 31 mg/dL (7-18)
--- NOTE | 2019-07-01 10:43 | NUR ---
NURSING SUP GAVE TELE BED 106.
[2019-07-01 10:46] LABS: ALANINE AMINOTRANSFERASE 6 U/L (12-78); ALBUMIN 3.4 g/dL (3.4-5.0); ALKALINE PHOSPHATASE 63 U/L (46-116); ASPARTATE AMINOTRANSFERASE 14 U/L (15-37); BILIRUBIN,DIRECT 0.1 mg/dL (0.0-0.2); BILIRUBIN,TOTAL 0.5 mg/dL (0.2-1.0); TOTAL PROTEIN, SERUM 6.9 g/dL (6.4-8.2)
--- NOTE | 2019-07-01 10:58 | NUR ---
still unable to provide urine sample.
--- NOTE | 2019-07-01 11:02 | NUR ---
FAXED CLINICALS TO FROM [facility].
--- NOTE | 2019-07-01 11:34 | NUR ---
RYAN GOMEZ CALLED FOR FOLLOWUP ON IMAGING. WILL SET UP MD TO MD CALL.
[2019-07-01 11:58] LABS: THYROID STIMULATING HORMONE 0.898 uIU/mL (0.358-3.74)
--- NOTE | 2019-07-01 12:12 | NUR ---
NURSING SUP CHANGED TO 113-1.
--- NOTE | 2019-07-01 12:14 | NUR ---
DR. MEDINA FROM [facility] CALLED FOR MD TO MD AND WANTS TO TRANSFER TO [facility].
--- NOTE | 2019-07-01 12:19 | NUR ---
CALLED RYAN GOMEZ FROM [facility] TO SEE IF PT WILL HAVE BED WITHIN HOUR. SHE IS WORKING ON ROOM ASSIGNMENT, WILL GET BACK TO ME WHEN ONE IS AVAILABLE.
[2019-07-01 12:53] LABS: APPEARANCE,URINE Clear (CLEAR); BILIRUBIN,URINE Negative (NEGATIVE); BLOOD, URINE Negative Ery/uL (NEGATIVE); COLOR,URINE Yellow (YELLOW); KETONES,URINE Negative (NEGATIVE); LEUKOCYTE ESTERASE ,URINE Negative (NEGATIVE); NITRITE, URINE Negative (NEGATIVE); PROTEIN,URINE Negative (NEGATIVE); UGLUCOSE Negative (NEGATIVE); UROBILINOGEN,URINE 0.2 EU/dL (0.2)
--- NOTE | 2019-07-01 13:10 | NUR ---
RYAN GOMEZ FROM [facility] CALLED WITH BED ASSIGNMENT. PT WILL GO TO [facility] ROOM 212B. NURSE NAME IS WILMER. ACCEPTING IS DR. MEDINA. NUMBER FOR REPORT [phone].
--- NOTE | 2019-07-01 13:27 | NUR ---
REPORT GIVEN TO JEFF OWENS AT [facility]. AWAITING TRANSFER.
--- NOTE | 2019-07-01 13:46 | NUR ---
RYAN ADAMS [facility] CALLED AND ETA FOR AMBULANCE IS 60-90 MINUTES.
[2019-07-01 15:27] VITALS: BP 141/59
--- NOTE | 2019-07-01 15:43 | NUR ---
TRANPORTED TO [facility] IN STABLE CONDITION.
== END 2019-07-01 15:45 | disposition short-term general hospital (02) ==
LOC: ER 09:17
DX: R53.1 Weakness (principal); R51 Headache; I25.10 Atherosclerotic heart disease of native coronary artery without angina pectoris; I25.2 Old myocardial infarction; I10 Essential (primary) hypertension; E78.5 Hyperlipidemia, unspecified; E11.9 Type 2 diabetes mellitus without complications; Z86.73 Personal history of transient ischemic attack (TIA), and cerebral infarction without residual deficits; Z79.82 Long term (current) use of aspirin; Z79.899 Other long term (current) drug therapy
CPT/HCPCS: 36415; 70450-TC; 71045-TC; 72074-TC; 80048-TC; 80076-TC; 81000-TC; 82140-TC; 82962-TC; 83690-TC; 83880; 84443-TC; 84484-TC; 85025-TC; 85730-TC; 87081-TC

== ENCOUNTER 2019-10-30 14:54 | Emergency (ER) | payer MEDICAID ==
[~2019-10-30] VITALS: Ht 170.2 cm; Wt 67.3 kg
[~2019-10-30 14:54] MED LIST changes: -AMOX500C2 PO; +CARB1TAB21 PO; -CLAR500T PO; -DOCU-106 PO; -FINA5TAB3 PO; +METF-440 PO; -TAMS0.4C34 PO; +TIZA4TAB5 PO
--- NOTE | 2019-10-30 14:59 | NUR ---
BIB SON FOR CONSTIPATION X 3 DAYS. TO ER BED 3, HOOKED TO MONITOR, CHANGED TO HOSP GOWN, WARM BLANKET PROVIDED, PATIENT AAO x 1, BREATHING EVEN AND UNLABORED, AWAITING MD SALCEDO.
--- NOTE | 2019-10-30 15:05 | NUR ---
DR GRAY AT BEDSIDE
--- NOTE | 2019-10-30 15:20 | NUR ---
WHEELED OUT VIA [facility] FOR CT SCAN.
[2019-10-30 17:20] LABS: APPEARANCE,URINE Clear (CLEAR); BILIRUBIN,URINE Negative (NEGATIVE); BLOOD, URINE Negative Ery/uL (NEGATIVE); COLOR,URINE Yellow (YELLOW); KETONES,URINE Negative (NEGATIVE); LEUKOCYTE ESTERASE ,URINE Negative (NEGATIVE); NITRITE, URINE Negative (NEGATIVE); PROTEIN,URINE Negative (NEGATIVE); UGLUCOSE Negative (NEGATIVE); UROBILINOGEN,URINE 0.2 EU/dL (0.2)
--- NOTE | 2019-10-30 17:20 | NUR ---
urine sample sent to lab
[2019-10-30 17:27] VITALS: BP 129/68
--- NOTE | 2019-10-30 17:27 | NUR ---
Patient discharged to home with son in stable condition. Written and verbal after care instructions given. Son verbalizes understanding of instruction.
== END 2019-10-30 17:28 | disposition home or self-care (01) ==
LOC: ER 14:56
DX: K59.00 Constipation, unspecified (principal); R33.9 Retention of urine, unspecified; I21.9 Acute myocardial infarction, unspecified; I10 Essential (primary) hypertension; I25.10 Atherosclerotic heart disease of native coronary artery without angina pectoris; E11.9 Type 2 diabetes mellitus without complications; Z86.73 Personal history of transient ischemic attack (TIA), and cerebral infarction without residual deficits; Z79.899 Other long term (current) drug therapy; Z79.82 Long term (current) use of aspirin
CPT/HCPCS: 81000-TC; 87086-TC

== ENCOUNTER 2020-03-08 06:15 | Emergency (ER) | payer MEDICAID ==
[~2020-03-08] VITALS: Ht 157.5 cm; Wt 68.0 kg
--- NOTE | 2020-03-08 06:56 | NUR ---
patient came to er bed 8 c/o "shaking at home" @ 0200 with diarrhea 2x. Patient was given blood pressure medications. Patient is alert and awake but unable to talk. son at bedside able to speak with patient through mouthing of words. patient is breathing evenly and unlabored on room air at 99% O2. connected to the four h club agent.
[2020-03-08 06:58] LABS: BASOPHILS % (AUTO) 0.5 % (0.0-2.0); HEMATOCRIT 34 % (39-51); HEMOGLOBIN 10.6 g/dL (13.5-17.5); LYMPHOCYTES # (AUTO) 0.6 /CMM (0.8-4.8); LYMPHOCYTES % (AUTO) 8.1 % (20.0-44.0); MEAN CORPUSCULAR HGB CONC 32 g/dl (31.0-36.0); MEAN CORPUSCULAR VOLUME 75 fL (80-96); MONOCYTES # (AUTO) 0.5 /CMM (0.1-1.30); MONOCYTES % (AUTO) 6.7 % (2.0-12.0); NEUTROPHILS # (AUTO) 6.7 /CMM (1.8-8.9); NEUTROPHILS % (AUTO) 83.7 % (43.0-81.0); PLATELET COUNT (AUTO) 205 /CMM (150-450); RED BLOOD CELL COUNT(AUTO) 4.48 MIL/uL (4.5-6.0)
--- NOTE | 2020-03-08 06:58 | NUR ---
Blood, Cultures, Urine, Covid sample, and Flu collected and sent to the lab.
--- NOTE | 2020-03-08 07:07 | NUR ---
Son's Phone Number: Ramon, .
[2020-03-08 07:12] LABS: CALCIUM, SERUM 9.2 mg/dL (8.5-10.1); CREATININE 0.7 mg/dL (0.6-1.3); POTASSIUM 3.7 mmol/L (3.5-5.1)
[2020-03-08 07:14] LABS: APPEARANCE,URINE CLOUDY (CLEAR); BILIRUBIN,URINE NEGATIVE (NEGATIVE); BLOOD, URINE LARGE Ery/uL (NEGATIVE); COLOR,URINE YELLOW (YELLOW); KETONES,URINE NEGATIVE (NEGATIVE); LEUKOCYTE ESTERASE ,URINE LARGE (NEGATIVE); NITRITE, URINE POSITIVE (NEGATIVE); PH,URINE 8.5 (5.0-8.0); PROTEIN,URINE 100 mg/dl (NEGATIVE); UGLUCOSE NEGATIVE (NEGATIVE); UROBILINOGEN,URINE 0.2 EU/dL (0.2)
[2020-03-08 07:18] LABS: ALBUMIN 2.7 g/dL (3.4-5.0); BILIRUBIN,DIRECT 0.1 mg/dL (0.0-0.2); BILIRUBIN,TOTAL 0.4 mg/dL (0.2-1.0); TOTAL PROTEIN, SERUM 7.3 g/dL (6.4-8.2)
[2020-03-08] MEDS ORDERED: IV NS 0.9% 500 ML BAG IV ONE (08:00)
[2020-03-08] MEDS ORDERED: CEFTRIAXONE 1GM BAG (ER ONLY) 1 GM/50 ML PIGGYBACK IV ONE (08:00)
[2020-03-08] MEDS ORDERED: CEFTRIAXONE 1GM BAG (ER ONLY) 50 ML IV ONE (08:07)
[2020-03-08 08:52] LABS: RBC,URINE TOO NUMEROUS TO COUN /HPF (0-2); WBC,URINE TOO NUMEROUS TO COUN /HPF (0-3)
[2020-03-08 08:53] LABS: BACTERIA,URINE Moderate /HPF (None Seen); SQUAMOUS EPITHELIAL CELL,UR Rare /HPF (None Seen)
--- NOTE | 2020-03-08 08:59 | NUR ---
PATIENT RESTING, NO DISTRESS NOTED. DR. RAMOS FROM [facility] CALLED FOR PEER TO PEER.
--- NOTE | 2020-03-08 09:23 | NUR ---
PATIENT ACCEPTED BY DR. WILSON FROM [facility]. BED ASSIGNMENT STILL PENDING
--- NOTE | 2020-03-08 11:00 | NUR ---
FAXED COVID RESULT TO JUSTIN DAVIS [phone] AND [facility] [phone]
--- NOTE | 2020-03-08 11:34 | NUR ---
G-TUBE GLUCERNA 1.5 (5 CONTAINERS DAILY).
--- NOTE | 2020-03-08 11:42 | NUR ---
[facility] BED 211-B NURSE IS TOÑA. # FOR REPORT IS [phone]
--- NOTE | 2020-03-08 11:53 | NUR ---
JUSTIN DAVIS FROM [facility] GAVE AMBULANCE ETA. ETA IS [phone] WITH [facility]. ACCEPTING DR. RODRIGUEZ.
[2020-03-08 13:01] VITALS: BP 154/94
--- NOTE | 2020-03-08 13:10 | NUR ---
REPORT GIVEN TO TOÑA OWENS AT [facility].
--- NOTE | 2020-03-08 15:44 | NUR ---
PATIENT TRANSFERRED TO [facility] IN STABLE CONDITION. REPORT GIVEN TO PAINTER STRUCTURAL STEEL.
== END 2020-03-08 15:46 | disposition short-term general hospital (02) ==
LOC: ER 06:19
DX: A41.9 Sepsis, unspecified organism (principal); N12 Tubulo-interstitial nephritis, not specified as acute or chronic; R79.89 Other specified abnormal findings of blood chemistry; D64.9 Anemia, unspecified; I69.359 Hemiplegia and hemiparesis following cerebral infarction affecting unspecified side; I10 Essential (primary) hypertension; E11.9 Type 2 diabetes mellitus without complications; E78.5 Hyperlipidemia, unspecified; Z93.1 Gastrostomy status; I25.2 Old myocardial infarction; I25.10 Atherosclerotic heart disease of native coronary artery without angina pectoris; Z79.82 Long term (current) use of aspirin; Z79.84 Long term (current) use of oral hypoglycemic drugs; Z20.828 Contact with and (suspected) exposure to other viral communicable diseases
CPT/HCPCS: 36415; 71045; 76604; 80048; 80076; 81001; 83605; 84145; 84484; 85025; 85730; 87040 ×2; 87077; 87086; 87186; 87426; 87804; 93005; 96365; 99291; C9803 ×2; J0696; J7040; U0003; 81000-TC

== ENCOUNTER 2020-06-04 19:01 | Inpatient (IN) | payer MEDICAID ==
[~2020-06-04] VITALS: Ht 157.5 cm; Wt 72.6 kg
[~2020-06-04 19:01] MED LIST changes: +AMLO-213 PO; -AMLO10TA7 PO
--- NOTE | 2020-06-04 21:36 | NUR ---
[facility] (SON) CONTACT INFORMATION: [phone]
[2020-06-04 21:44] LABS: EOSINOPHILS % (AUTO) 3.8 % (0.0-6.0); HEMATOCRIT 33 % (39-51); HEMOGLOBIN 10.2 g/dL (13.5-17.5); LYMPHOCYTES # (AUTO) 0.6 /CMM (0.8-4.8); LYMPHOCYTES % (AUTO) 12.1 % (20.0-44.0); MEAN CORPUSCULAR HGB CONC 31 g/dl (31.0-36.0); MEAN CORPUSCULAR VOLUME 79 fL (80-96); MONOCYTES # (AUTO) 0.2 /CMM (0.1-1.30); MONOCYTES % (AUTO) 4.6 % (2.0-12.0); NEUTROPHILS # (AUTO) 3.8 /CMM (1.8-8.9); NEUTROPHILS % (AUTO) 79.5 % (43.0-81.0); PLATELET COUNT (AUTO) 183 /CMM (150-450); WHITE BLOOD COUNT (AUTO) 4.8 K/uL (4.3-11.0)
[2020-06-04 22:14] LABS: CALCIUM, SERUM 9.7 mg/dL (8.5-10.1); CREATININE 0.7 mg/dL (0.6-1.3); POTASSIUM 5.3 mmol/L (3.5-5.1)
--- NOTE | 2020-06-04 23:08 | NUR ---
LAB CALLED REGARDING NEGATIVE COVID RESULT.
[2020-06-04] MEDS ORDERED: TAMS-12 PO (23:28)
[2020-06-04] MEDS ORDERED: CLOP75TA15 PO (23:28)
[2020-06-04] MEDS ORDERED: FUROSEMIDE 40 MG/4 ML VIAL ONE (23:57)
[2020-06-05] MEDS ORDERED: TIZANIDINE HCL 4 MG TABLET PO PRN
[2020-06-05] MEDS ORDERED: ACETAMINOPHEN 650 MG/20.3 ML UDC GT ONE
[2020-06-05] MEDS ORDERED: NITROGLYCERIN PACKET 1 GM PACKET ONE (00:11)
[2020-06-05] MEDS ORDERED: NITROGLYCERIN PACKET 1 GM PACKET TOP SCH (00:30)
[2020-06-05] MEDS ORDERED: FUROSEMIDE 40 MG/4 ML VIAL IV SCH (00:30)
[2020-06-05] MEDS ORDERED: PIPERACILLIN /TAZOBACTAM 3.375 G in IV D5W 50 ML IV ONE (01:00)
[2020-06-05] MEDS ORDERED: PIPERACILLIN /TAZOBACTAM 3.375 G VIAL IV ONE (01:31)
--- NOTE | 2020-06-05 01:35 | NUR ---
F/C [id number].
--- NOTE | 2020-06-05 02:19 | NUR ---
PT RESTING QUIETLY, NO ACUTE DISTRESS NOTED, RESP EVEN AND UNLABORE. NO PAIN OR DISCOMFORT NOTED AT THIS TIME. CALL LIGHT WITHIN REACH. WILL CONTINUE TO MONITOR PT CLOSELY.
--- NOTE | 2020-06-05 03:50 | NUR ---
PT ASLEEP, NO ACUTE DISTRESS NOTED, RESP EVEN AND UNLABORED. CALL LIGHT WITHIN REACH.
--- NOTE | 2020-06-05 04:58 | NUR ---
REPOSITIONED PT FOR COMFORT. NO PAIN OR DISCOMFORT NOTED. NO ACUTE DISTRESS NOTED, RESP EVEN AND UNLABORED. CALL LIGHT WIHTIN REACH.
[2020-06-05 05:33] LABS: BASOPHILS % (AUTO) 0.7 % (0.0-2.0); EOSINOPHILS % (AUTO) 2.5 % (0.0-6.0); HEMATOCRIT 31 % (39-51); HEMOGLOBIN 9.8 g/dL (13.5-17.5); LYMPHOCYTES # (AUTO) 0.9 /CMM (0.8-4.8); MEAN CORPUSCULAR HGB CONC 31 g/dl (31.0-36.0); MEAN CORPUSCULAR VOLUME 79 fL (80-96); MONOCYTES # (AUTO) 0.5 /CMM (0.1-1.30); MONOCYTES % (AUTO) 10.3 % (2.0-12.0); NEUTROPHILS % (AUTO) 66.5 % (43.0-81.0); PLATELET COUNT (AUTO) 173 /CMM (150-450); RED BLOOD CELL COUNT(AUTO) 3.98 MIL/uL (4.5-6.0); WHITE BLOOD COUNT (AUTO) 4.5 K/uL (4.3-11.0)
[2020-06-05 05:44] LABS: CALCIUM, SERUM 9.2 mg/dL (8.5-10.1); CREATININE 0.8 mg/dL (0.6-1.3); POTASSIUM 4.4 mmol/L (3.5-5.1)
--- NOTE | 2020-06-05 06:28 | NUR ---
F/C [id number]
--- NOTE | 2020-06-05 07:49 | NUR ---
REPORT GIVEN TO AM SHIFT ROMAN BERG
[2020-06-05] MEDS ORDERED: METFORMIN XR 500 MG TAB.SR.24H PO ONE (08:18)
[2020-06-05] MEDS ORDERED: ASPIRIN EC 81 MG TABLET.DR PO ONE (08:18)
[2020-06-05] MEDS ORDERED: CARVEDILOL 6.25 MG TABLET ONE (08:18)
[2020-06-05] MEDS ORDERED: TAMSULOSIN 0.4 MG CAP.SR.24H ONE (08:19)
[2020-06-05] MEDS ORDERED: FUROSEMIDE 20 MG TABLET ONE (08:19)
[2020-06-05] MEDS ORDERED: CLOPIDOGREL BISULFATE 75 MG TABLET ONE (08:20)
[2020-06-05] MEDS ORDERED: AMLODIPINE BESYLATE 5 MG TABLET ONE (08:20)
[2020-06-05] MEDS: METFORMIN 500 MG TABLET PO SCH ×2 (08:24→17:18)
[2020-06-05] MEDS: CARBIDOPA/LEVODOPA 25/100 MG 1 UDTAB PO SCH ×3 (08:27→17:02)
--- NOTE | 2020-06-05 08:50 | NUR ---
PATIENT RESTING, NO DISTRESS NOTED, NEEDS ATTENDED. KEPT COMFORTABLE. VS STABLE.
[2020-06-05] MEDS ORDERED: AMLODIPINE BESYLATE 10 MG TABLET PO SCH (09:00)
[2020-06-05] MEDS ORDERED: CLOPIDOGREL BISULFATE 75 MG TABLET PO SCH (09:00)
[2020-06-05] MEDS ORDERED: CARVEDILOL 3.125 MG TABLET PO SCH (09:00)
[2020-06-05] MEDS ORDERED: ASPIRIN EC 81 MG TABLET.DR PO SCH (09:00)
[2020-06-05] MEDS ORDERED: TAMSULOSIN 0.4 MG CAP.SR.24H PO SCH (09:00)
[2020-06-05] MEDS ORDERED: FUROSEMIDE 20 MG TABLET PO SCH (09:00)
[2020-06-05] MEDS ORDERED: AMOX-430 PO (09:57)
--- NOTE | 2020-06-05 11:36 | NUR ---
PATIENT REMOVED O2, PULSE OX 98-99% ON ROOM AIR. NO DISTRESS NOTED. SON FRANCE AWARE PATIENT IS BEING DISCHARGED. WAITING FOR [facility] TO ARRANGE AMBULANCE TRANSPORTATION.
--- NOTE | 2020-06-05 12:07 | NUR ---
CALLED [facility] [phone] [place] TO ARRANGE TRANSPORT SO REED POLISHER WILL CALL US BACK
[2020-06-05] MEDS: PIPERACILLIN /TAZOBACTAM 3.375 G in IV D5W 50 ML IV SCH ×2 (12:28→17:15)
--- NOTE | 2020-06-05 12:50 | NUR ---
SPOKE TO SUE CAPTAIN ASSISTANT FROM [facility].
--- NOTE | 2020-06-05 15:08 | NUR ---
TRANSFER INFO: [facility] ([phone]) ETA 1900, DISCHARGED TO HOME. SON WILL BE AT HOME TO RECEIVE PATIENT.
--- NOTE | 2020-06-05 19:53 | NUR ---
ETA DELAYED. [facility] FROM [place]. UNIT 123 ETA 45 MINS PER WHITNEY.
--- NOTE | 2020-06-05 21:03 | NUR ---
report given to emt transport.
--- NOTE | 2020-06-05 21:05 | NUR ---
PT DISCHARGED HOME.
[2020-06-05] MEDS ORDERED: ATORVASTATIN 40 MG TABLET PO SCH (22:00)
[2020-06-05 22:18] VITALS: BP 134/68
== END 2020-06-05 21:32 | disposition home or self-care (01) | DRG 137 ==
LOC: ER 19:02 → TRANSITION 23:54
PROVIDERS: ADMIT Internal Medicine; ATTEND Internal Medicine
DX: J69.0 Pneumonitis due to inhalation of food and vomit (principal); I25.10 Atherosclerotic heart disease of native coronary artery without angina pectoris; R13.10 Dysphagia, unspecified; E11.9 Type 2 diabetes mellitus without complications; Z93.1 Gastrostomy status; D50.9 Iron deficiency anemia, unspecified; E78.5 Hyperlipidemia, unspecified; G20 Parkinson's disease; F02.80 Dementia in other diseases classified elsewhere, unspecified severity, without behavioral disturbance, psychotic disturbance, mood disturbance, and anxiety; I69.351 Hemiplegia and hemiparesis following cerebral infarction affecting right dominant side; Z79.84 Long term (current) use of oral hypoglycemic drugs; Z79.82 Long term (current) use of aspirin; Z96.659 Presence of unspecified artificial knee joint; R53.1 Weakness; Z95.0 Presence of cardiac pacemaker; I10 Essential (primary) hypertension
CPT/HCPCS: 36415; 71045-TC; 80048-TC; 83880; 84484-TC; 85025-TC; 85730-TC; 87081-TC; C9803; G0378; J1940; J2543; J7060

== ENCOUNTER 2020-09-23 12:05 | Emergency (ER) | payer MEDICAID ==
[~2020-09-23] VITALS: Ht 167.6 cm; Wt 82.6 kg
[~2020-09-23 12:05] MED LIST changes: +AMOX-430 PO; +CLOP75TA15 PO; +TAMS-12 PO
[2020-09-23] MEDS ORDERED: CIPR-262 PO (12:47)
--- NOTE | 2020-09-23 12:52 | NUR ---
Patient Came to ED BIB EMS C/C collins not draining .I checked collins cath flushed with 50 ML and able to pull back 60 Ml no resistance and draining noted yellow urine to collins bag all info relied to .,
--- NOTE | 2020-09-23 13:11 | NUR ---
Emptied collins cath 300 yellow urine in the bag .
--- NOTE | 2020-09-23 13:12 | NUR ---
DC home instruction given to Son ( sitting waiting area ) agrees to see PMD in 1 day verbalized understanding .
--- NOTE | 2020-09-23 13:23 | NUR ---
CALLED JIM [phone] WILL CALL WITH ETA RESERVATION #[phone]
[2020-09-23 13:34] LABS: BILIRUBIN,URINE Negative (NEGATIVE); COLOR,URINE YELLOW (YELLOW); LEUKOCYTE ESTERASE ,URINE Moderate (NEGATIVE); NITRITE, URINE Negative (NEGATIVE); PROTEIN,URINE 30 mg/dl (NEGATIVE); UGLUCOSE Negative (NEGATIVE); UROBILINOGEN,URINE 0.2 EU/dL (0.2)
[2020-09-23 13:38] LABS: BACTERIA,URINE 2+ /HPF (None Seen); SQUAMOUS EPITHELIAL CELL,UR Few /HPF (None Seen)
--- NOTE | 2020-09-23 13:39 | NUR ---
[facility] WILL TRANSPORT ETA [phone]
--- NOTE | 2020-09-23 14:00 | NUR ---
Dc home with collins cath given information collins cat care to his career technology teacher ( son ) appreaciated .
--- NOTE | 2020-09-23 14:37 | NUR ---
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
[2020-09-23 14:39] VITALS: BP 123/78
== END 2020-09-23 14:46 | disposition home or self-care (01) ==
LOC: ER 12:09
DX: T83.098A Other mechanical complication of other urinary catheter, initial encounter (principal); I10 Essential (primary) hypertension; E78.5 Hyperlipidemia, unspecified; I25.10 Atherosclerotic heart disease of native coronary artery without angina pectoris; I25.2 Old myocardial infarction; E11.9 Type 2 diabetes mellitus without complications; Z86.73 Personal history of transient ischemic attack (TIA), and cerebral infarction without residual deficits; Z93.1 Gastrostomy status; Z95.0 Presence of cardiac pacemaker; Z79.899 Other long term (current) drug therapy; Z79.84 Long term (current) use of oral hypoglycemic drugs; Z79.82 Long term (current) use of aspirin
CPT/HCPCS: 81001; 87086-TC

== ENCOUNTER 2020-12-14 19:01 | Emergency (ER) | payer MEDICAID ==
[~2020-12-14] VITALS: Ht 170.2 cm; Wt 75.7 kg
[2020-12-14] MEDS: CIPROFLOXACIN IV RTU 400 MG in PREMIX 1 EA IV SCH (00:30)
[~2020-12-14 19:01] MED LIST changes: +CIPR-262 PO; -OMEP40CA13 PO; +OMEP40CA21 PO
--- NOTE | 2020-12-14 19:10 | NUR ---
ALVARO FROM HOME, SON NOTICED ABDOMINAL DISTENTION/PAIN TODAY, PT RECEIVED 2ND DOSE OF MODERNA COVID VACCINE 4 DAYS AGO. ON ASSESSMENT PT WAS OBSERVED WITH FACIAL GRIMACING ON PALPATION OF ABDOMEN. PT SEEN AND EXAMINED BY DR GRAY. BREATHING EVEN AND UNLABORED, SATURATION AT 98& ON 2LPM VIA NC. PT ATTACHED TO MONITOR AND PULSE OX. WILL ATTEND TO MD ORDERS, AND CONTINUE TO MONITOR. Addendum: 12/14/20 at 2158 by MORGAN PT NON VERBAL, HEBREW SPEAKING, SON AT BEDSIDE FOR TRANSLATION
[2020-12-14] MEDS ORDERED: IV NS 0.9% 500 ML BAG IV ONE (19:30)
[2020-12-14] MEDS ORDERED: MORPHINE SULFATE INJ 2 MG/ML DISP.SYRIN IV ONE ×3 (19:30→23:30)
[2020-12-14] MEDS ORDERED: MORPHINE SULFATE INJ 2 MG/ML DISP.SYRIN ONE ×2 (19:38→22:00)
[2020-12-14 19:44] LABS: BASOPHILS # (AUTO) 0.1 K/uL (0.0-0.2); BASOPHILS % (AUTO) 0.7 % (0.0-2.0); EOSINOPHILS % (AUTO) 1.4 % (0.0-6.0); HEMATOCRIT 32 % (39-51); HEMOGLOBIN 10.4 g/dL (13.5-17.5); LYMPHOCYTES # (AUTO) 0.8 K/uL (0.8-4.8); MEAN CORPUSCULAR HGB CONC 32 g/dl (31.0-36.0); MEAN CORPUSCULAR VOLUME 79 fL (80-96); MONOCYTES # (AUTO) 0.6 K/uL (0.1-1.30); MONOCYTES % (AUTO) 8.3 % (2.0-12.0); NEUTROPHILS % (AUTO) 78.6 % (43.0-81.0); PLATELET COUNT (AUTO) 189 K/uL (150-450); RED BLOOD CELL COUNT(AUTO) 4.09 MIL/uL (4.5-6.0); WHITE BLOOD COUNT (AUTO) 7.7 K/uL (4.3-11.0)
[2020-12-14 19:51] LABS: CALCIUM, SERUM 9.6 mg/dL (8.5-10.1); CREATININE 0.9 mg/dL (0.6-1.3); POTASSIUM 3.7 mmol/L (3.5-5.1)
[2020-12-14 19:56] LABS: ALBUMIN 2.6 g/dL (3.4-5.0); BILIRUBIN,DIRECT 0.1 mg/dL (0.0-0.2); BILIRUBIN,TOTAL 0.2 mg/dL (0.2-1.0); TOTAL PROTEIN, SERUM 7.4 g/dL (6.4-8.2)
--- NOTE | 2020-12-14 20:10 | NUR ---
PT TAKEN TO RADIOLOGY, SON PRESENT AT BEDSIDE.
[2020-12-14] MEDS ORDERED: CT SWABBABLE VALVE TRANS SET 1 EA INFUS.SET MC ONE (20:12)
[2020-12-14] MEDS ORDERED: IV NS 0.9% 250 ML IV ONE (20:12)
[2020-12-14] MEDS ORDERED: IOHEXOL-300 100 ML VIAL IV ONE (20:12)
--- NOTE | 2020-12-14 20:29 | NUR ---
PT BACK TO BED ED BED [address] ABDOMEN. SON AT BEDSIDE. WILL CONT TO MONITOR.
--- NOTE | 2020-12-14 20:57 | NUR ---
PT C/O PAIN, BP 162/66 MD NOTIFIED, ORDERS RECEIVED TO ADMINISTER MORPHINE 2MG IV.
--- NOTE | 2020-12-14 21:20 | NUR ---
GAVE MOVESHEET AND CLINICALS TO ADMITTING FOR INSUR AUTH
--- NOTE | 2020-12-14 23:00 | NUR ---
COVID SWAB COLLECTED AND SENT TO LAB
[2020-12-14] MEDS ORDERED: METRONIDAZOLE 500MG/ NS 100ML 100 ML IV ONE (23:30)
[2020-12-14] MEDS ORDERED: FLAGYL/NS RTU 500 MG/100 ML PIGGYBACK IV ONE (23:30)
[2020-12-14] MEDS ORDERED: CIPROFLOXACIN IV RTU 200 ML IV ONE (23:31)
[2020-12-14] MEDS ORDERED: MORPHINE SULFATE INJ 4 MG/ML DISP.SYRIN ONE (23:31)
--- NOTE | 2020-12-14 23:44 | NUR ---
PER GIUSEPPE CM, PT WILL BE TRANSFERRED TO [facility]. ACCEPTING DR CORNELIUS. WILL FAX COVID RESULT TO HOSPITAL
[2020-12-15] MEDS: CIPROFLOXACIN IV RTU 400 MG in PREMIX 1 EA IV SCH (00:30)
--- NOTE | 2020-12-15 00:35 | NUR ---
TRANSFER INFO: [facility] [id number] NUMBER FOR REPORT [phone]. RYAN BRYANT, WILL SET UP TRANSPORT AND CALL WITH ETA
--- NOTE | 2020-12-15 00:58 | NUR ---
TRANSFER INFORMATION: [facility] ACCEPTING MD CORNELIUS PT WILL GO TO ROOM 609 PHONE NUMBER FOR REPORT [facility] ETA [phone]
--- NOTE | 2020-12-15 01:17 | NUR ---
REPORT GIVEN TO SARAH OWENS AT [facility] AT .
[2020-12-15] MEDS ORDERED: ALBUTEROL FS 2.5 MG/0.5 ML VIAL.NEB NEB ONE (01:30)
--- NOTE | 2020-12-15 01:51 | NUR ---
rt at bedside
[2020-12-15] MEDS ORDERED: ALBUTEROL FS 2.5 MG/0.5 ML VIAL.NEB ONE (01:53)
--- NOTE | 2020-12-15 02:17 | NUR ---
GAVE REPORT TO EMS
[2020-12-15 02:25] VITALS: BP 142/59
--- NOTE | 2020-12-15 02:25 | NUR ---
PT TRANSFERRED TO [facility] VIA BLS PROTOCOL IN A STRETCHER ACCOMPANIED BY 2 EMT PERSONNEL, AND SON IN STABLE CONDITION. Patient Tranfers to outside Facility Physician: Location:
== END 2020-12-15 02:25 | disposition short-term general hospital (02) ==
LOC: ER 19:03
DX: R10.84 Generalized abdominal pain (principal); I25.2 Old myocardial infarction; I10 Essential (primary) hypertension; R00.1 Bradycardia, unspecified; Z95.0 Presence of cardiac pacemaker; R13.10 Dysphagia, unspecified; Z93.1 Gastrostomy status; Z20.822 Contact with and (suspected) exposure to COVID-19; E11.9 Type 2 diabetes mellitus without complications; Z86.73 Personal history of transient ischemic attack (TIA), and cerebral infarction without residual deficits; F03.90 Unspecified dementia, unspecified severity, without behavioral disturbance, psychotic disturbance, mood disturbance, and anxiety; Z79.84 Long term (current) use of oral hypoglycemic drugs; Z79.899 Other long term (current) drug therapy; K40.90 Unilateral inguinal hernia, without obstruction or gangrene, not specified as recurrent
CPT/HCPCS: 36415; 74177; 80048; 80076; 83605 ×2; 83690; 85025; 87426; 94640; 96361; 96365; 96367; 96375; 96376; 99285; C9803; J0744; J2270 ×3; J7040; J7050; Q9967; A4216

== ENCOUNTER 2020-12-17 17:28 | Emergency (ER) | payer MEDICAID ==
[~2020-12-17] VITALS: Ht 170.2 cm; Wt 74.8 kg
--- NOTE | 2020-12-17 17:56 | NUR ---
FAMILY CALLED 911 - C/O ABDOMINAL PAIN FEVER+ ; SEPTIC WORK UP DONE
[2020-12-17] MEDS ORDERED: NS 0.9% IV ONE (18:00)
[2020-12-17] MEDS ORDERED: ACETAMINOPHEN 650 MG/SUPP.RECT RC ONE ×2 (18:00→18:02)
[2020-12-17 18:09] LABS: BASOPHILS # (AUTO) 0.1 K/uL (0.0-0.2); EOSINOPHILS % (AUTO) 6.3 % (0.0-6.0); HEMATOCRIT 32 % (39-51); LYMPHOCYTES # (AUTO) 0.8 K/uL (0.8-4.8); LYMPHOCYTES % (AUTO) 15.4 % (20.0-44.0); MEAN CORPUSCULAR HGB CONC 31 g/dl (31.0-36.0); MEAN CORPUSCULAR VOLUME 80 fL (80-96); MONOCYTES # (AUTO) 0.5 K/uL (0.1-1.30); MONOCYTES % (AUTO) 10.3 % (2.0-12.0); NEUTROPHILS # (AUTO) 3.6 K/uL (1.8-8.9); PLATELET COUNT (AUTO) 224 K/uL (150-450); RED BLOOD CELL COUNT(AUTO) 4.03 MIL/uL (4.5-6.0); WHITE BLOOD COUNT (AUTO) 5.3 K/uL (4.3-11.0)
[2020-12-17 18:19] LABS: CALCIUM, SERUM 8.8 mg/dL (8.5-10.1); CARBON DIOXIDE 31 mmol/L (21-32); CHLORIDE 106 mmol/L (98-107); CREATININE 1.2 mg/dL (0.6-1.3); GLUCOSE 213 mg/dL (74-106); POTASSIUM 4.4 mmol/L (3.5-5.1); SODIUM SERUM 141 mmol/L (136-145); UREA NITROGEN, BLOOD 39 mg/dL (7-18)
[2020-12-17 18:25] LABS: ALANINE AMINOTRANSFERASE 16 U/L (12-78); ALBUMIN 2.5 g/dL (3.4-5.0); ALKALINE PHOSPHATASE 94 U/L (46-116); ASPARTATE AMINOTRANSFERASE 20 U/L (15-37); BILIRUBIN,DIRECT 0.1 mg/dL (0.0-0.2); BILIRUBIN,TOTAL 0.2 mg/dL (0.2-1.0); TOTAL PROTEIN, SERUM 7.2 g/dL (6.4-8.2)
[2020-12-17] MEDS ORDERED: IOHEXOL-300 100 ML VIAL IV ONE (18:29)
[2020-12-17] MEDS ORDERED: IV NS 0.9% 250 ML IV ONE (18:30)
--- NOTE | 2020-12-17 19:22 | NUR ---
Clement cath changed F 16 attached to drainage bag, urine collected and sent to lab. Son at bedside.
[2020-12-17 19:34] LABS: BILIRUBIN,URINE Negative (NEGATIVE); COLOR,URINE YELLOW (YELLOW); LEUKOCYTE ESTERASE ,URINE Trace (NEGATIVE); NITRITE, URINE Negative (NEGATIVE); PROTEIN,URINE 30 mg/dl (NEGATIVE); UGLUCOSE Negative (NEGATIVE); UROBILINOGEN,URINE 0.2 EU/dL (0.2)
[2020-12-17 19:45] LABS: BACTERIA,URINE Rare /HPF (None Seen); SQUAMOUS EPITHELIAL CELL,UR Rare /HPF (None Seen); WBC,URINE 0-2 /HPF (0-3)
[2020-12-17 19:46] LABS: CALCIUM OXALATE CRYSTALS,UR Few /HPF (None Seen)
[2020-12-17] MEDS ORDERED: MORPHINE SULFATE INJ 4 MG/ML DISP.SYRIN ONE (19:48)
[2020-12-17] MEDS ORDERED: ONDANSETRON HCL/PF 4 MG/2 ML VIAL ONE (19:48)
[2020-12-17] MEDS ORDERED: ONDANSETRON HCL/PF 4 MG/2 ML VIAL IVP ONE (20:00)
[2020-12-17] MEDS ORDERED: MORPHINE SULFATE INJ 2 MG/ML DISP.SYRIN IV ONE (20:00)
[2020-12-17] MEDS ORDERED: NALOXONE PREFILLED SYRINGE 2 MG/2 ML SYRINGE ONE (20:19)
--- NOTE | 2020-12-17 20:20 | NUR ---
PT W/ AN EPISODE OF RESPIRATORY DISTRESS. NOTED W/ LOW O2 SAT OF 50s. PT WAS PLACED ON NRB MASK AND CALLED MD AT BED SIDE. FSBS:206, NARCAN 2 MG IV GINE VO PER MD. WILL CONT TO MONITOR ,
[2020-12-17] MEDS ORDERED: NALOXONE PREFILLED SYRINGE 2 MG/2 ML SYRINGE IV ONE (20:30)
--- NOTE | 2020-12-17 20:32 | NUR ---
PT WAS WEANED OFF TO O2 AT 4LPM VIA NC. WILL CONT TO MONITOR ,
--- NOTE | 2020-12-17 22:36 | NUR ---
[facility] CALLED FOR TRANSPORT. ETA 45 MINUTES
--- NOTE | 2020-12-17 23:15 | NUR ---
PT WAS PICKED UP BY [facility]IA [facility] IN STABLE CONDITION AND D/C'D HOME
[2020-12-18 00:53] VITALS: BP 114/56
== END 2020-12-17 23:15 | disposition home or self-care (01) ==
LOC: ER 17:39
DX: R10.9 Unspecified abdominal pain (principal); I95.9 Hypotension, unspecified; I69.319 Unspecified symptoms and signs involving cognitive functions following cerebral infarction; F01.50 Vascular dementia, unspecified severity, without behavioral disturbance, psychotic disturbance, mood disturbance, and anxiety; Z93.1 Gastrostomy status; I25.2 Old myocardial infarction; I11.9 Hypertensive heart disease without heart failure; I25.10 Atherosclerotic heart disease of native coronary artery without angina pectoris; R13.10 Dysphagia, unspecified; E78.5 Hyperlipidemia, unspecified; E11.9 Type 2 diabetes mellitus without complications; Z95.0 Presence of cardiac pacemaker; Z79.02 Long term (current) use of antithrombotics/antiplatelets; Z79.899 Other long term (current) drug therapy; Z79.84 Long term (current) use of oral hypoglycemic drugs; R91.8 Other nonspecific abnormal finding of lung field; Z20.822 Contact with and (suspected) exposure to COVID-19
CPT/HCPCS: 36415; 51702; 71045 ×2; 74177; 76705; 80048; 80076; 81001; 82962; 83605 ×2; 83880; 84145; 84484 ×2; 85025; 85730; 87086; 87426; 93005 ×2; 96361; 96374; 96375; 99291; C9803 ×2; J2270; J2310; J2405; J7030; J7040; J7050; Q9967; U0003